=== PATIENT | male | born 1940 | race Caucasian/White ===

== ENCOUNTER 2016-07-29 20:50 | Emergency (ER) | payer MEDICARE ==
[2016-07-29 21:15] VITALS: BP 114/68
[2016-07-29] MEDS ORDERED: Prochlorperazine TAB* 10 MG PO ONE ×2 (21:38)
[2016-07-29] MEDS ORDERED: Prochlorperazine TAB* 5 MG PO ONE ×2 (21:45→21:46)
--- NOTE | 2016-07-29 21:45 | UC ---
Abdominal Pain Male HPI - HPI Summary HPI Summary: VOMITING X 4 HRS + FATIGUE, NO ABDOMINAL PAIN , NO DIARRHEA HAD SIMILAR SX ABOUT A WEEK AGO NO FEVER, NO DYSURIA - History of Current Complaint Chief Complaint: UCGeneralIllness Stated Complaint: VOMITING Time Seen by Provider: 07/29/16 21:27 Hx Obtained From: Patient, Family/Art Specialist Onset/Duration: Sudden Onset, Lasting Hours - 4, Still Present Timing: Constant Severity Initially: Moderate Severity Currently: Moderate Location: Diffuse Radiates: No Character: Not Applicable Aggravating Factor(s):: Food Alleviating Factor(s): Nothing Associated Signs And Symptoms: Negative: Diaphoresis, Fever, Cough, Chest Pain, Dizzy, Back Pain, Constipation, Blood in Stool, Urinary Symptoms, Decreased Appetite, Vomiting, Diarrhea - Allergies/Home Medications Allergies/Adverse Reactions: Allergies Allergy/AdvReac Type Severity Reaction Status Date / Time Atorvastatin [From Lipitor] Allergy Severe Hives Verified 07/29/16 21:14 Ondansetron [From Zofran] Allergy Severe RASH, Verified 07/29/16 21:14 SWELLING Sulfa Drugs Allergy Intermediate Rash Verified 07/29/16 21:14 Cetirizine [From Zyrtec] Allergy Hives Verified 07/29/16 21:14 Ciprofloxacin [From Cipro] Allergy Rash Verified 07/29/16 21:14 Clavulanic Acid Allergy See Comment Verified 07/29/16 21:14 [From Augmentin] Doxycycline Allergy See Comment Verified 07/29/16 21:14 Erythromycin Allergy Unknown Verified 07/29/16 21:14 Reaction Details PMH/Surg Hx/FS Hx/Imm Hx Endocrine History Of: Reports: Dyslipidemia Denies: Diabetes, Thyroid Disease Cardiovascular History Of: Reports: Cardiac Disorders - Dyslipidemia, Hypertension Denies: Pacemaker/ICD Respiratory History Of: Denies: COPD, Asthma GI/ History Of: Reports: Gastroesophageal Reflux Denies: Renal Disease Neurological History Of: Denies: CVA, Dementia, Seizures Psychological History Of: Reports: Anxiety - mild, takes xanax Other History Of: Negative For: Anticoagulant Therapy - Surgical History Surgical History: Yes Surgery Procedure, Year, and Place: gangleon cyst - Family History Known Family History: Positive: Other - allergies Negative: Diabetes - Social History Alcohol Use: None Substance Use Type: None Smoking Status (MU): Never Smoked Tobacco - Immunization History Most Recent Influenza Vaccination: March 2016 Review of Systems Constitutional: Negative Skin: Negative Eyes: Negative ENT: Negative Respiratory: Negative Cardiovascular: Negative Gastrointestinal: Vomiting Genitourinary: Negative All Other Systems Reviewed And Are Negative: Yes Physical Exam Triage Information Reviewed: Yes Appearance: Well-Appearing, No Pain Distress, Well-Nourished Vital Signs: Initial Vital Signs Temp 96.4 F 07/29/16 21:00 Pulse 90 07/29/16 21:00 Resp 18 07/29/16 21:00 BP 114/68 07/29/16 21:00 Pulse Ox 97 07/29/16 21:00 Vital Signs Reviewed: Yes ENT Exam: Normal ENT: Positive: Normal ENT inspection, Hearing grossly normal, Pharynx normal Neck exam: Normal Neck: Positive: Supple Respiratory Exam: Normal Respiratory: Positive: Chest non-tender, Lungs clear Cardiovascular: Positive: RRR, No Murmur, Pulses Normal Abdominal Exam: Normal Abdomen Description: Positive: Nontender. Negative: CVA Tenderness (R), CVA Tenderness (L), Distended, Guarding Bowel Sounds: Positive: Present Skin Exam: Normal Abd Pain Male Course/Dx - Differential Dx/Clinical Impression Provider Diagnoses: GASTRITIS Discharge - Discharge Plan Condition: Stable Disposition: HOME Patient Education Materials: Gastritis (ED) Referrals: Jsoiah Macias MD [Primary Care Provider] - 1 Day Additional Instructions: GO TO ED IF HAVING ABDOMINAL PAIN , FEVER, OR CONT. HAVING VOMITING BY TOMORROW
[2016-07-29] MEDS ORDERED: Prochlorperazine TAB* 5 MG ONE (21:49)
== END 2016-07-29 22:06 | disposition home or self-care (01) ==
LOC: UCCORT 20:50
DX: K29.70 Gastritis, unspecified, without bleeding (principal); F41.9 Anxiety disorder, unspecified; Z88.1 Allergy status to other antibiotic agents; Z88.2 Allergy status to sulfonamides; Z88.8 Allergy status to other drugs, medicaments and biological substances
CPT/HCPCS: 99212; A9270-GY; G0463; Q0164

== ENCOUNTER 2016-11-28 10:53 | Emergency (ER) | payer MEDICARE ==
--- NOTE | 2016-11-28 12:56 | UC ---
Lower Extremity/Ankle HPI - HPI Summary HPI Summary: hit right lower led on car door about 10 days ago now has 5 days of worsening calf pain and swelling in foot/ankle - History of Current Complaint Chief Complaint: UCLowerExtremity Stated Complaint: RIGHT LOWER LEG/ANKLE PAIN Time Seen by Provider: 11/28/16 12:32 Hx Obtained From: Patient Onset/Duration: Gradual Onset, Lasting Days, Still Present, Worse Since - past few days Severity Initially: Mild Severity Currently: Moderate Pain Intensity: 6 Pain Scale Used: 0-10 Numeric Aggravating Factor(s): Standing, Ambulation Alleviating Factor(s): Rest, Elevation Able to Bear Weight: Yes - Allergies/Home Medications Allergies/Adverse Reactions: Allergies Allergy/AdvReac Type Severity Reaction Status Date / Time Atorvastatin [From Lipitor] Allergy Severe Hives Verified 11/28/16 12:38 Ondansetron [From Zofran] Allergy Severe RASH, Verified 11/28/16 12:38 SWELLING Sulfa Drugs Allergy Intermediate Rash Verified 11/28/16 12:38 Cetirizine [From Zyrtec] Allergy Hives Verified 11/28/16 12:38 Ciprofloxacin [From Cipro] Allergy Rash Verified 11/28/16 12:38 Clavulanic Acid Allergy See Comment Verified 11/28/16 12:38 [From Augmentin] Doxycycline Allergy See Comment Verified 11/28/16 12:38 Erythromycin Allergy Unknown Verified 11/28/16 12:38 Reaction Details PMH/Surg Hx/FS Hx/Imm Hx Previously Healthy: No Endocrine History Of: Reports: Dyslipidemia Denies: Diabetes, Thyroid Disease Cardiovascular History Of: Reports: Cardiac Disorders - Dyslipidemia, Hypertension Denies: Pacemaker/ICD Respiratory History Of: Denies: COPD, Asthma GI/ History Of: Reports: Gastroesophageal Reflux Denies: Renal Disease Neurological History Of: Denies: CVA, Dementia, Seizures Psychological History Of: Reports: Anxiety - mild, takes xanax Other History Of: Negative For: Anticoagulant Therapy - Surgical History Surgical History: Yes Surgery Procedure, Year, and Place: gangleon cyst - Family History Known Family History: Positive: Other - allergies Negative: Diabetes - Social History Occupation: Retired Lives: With Family Alcohol Use: None Substance Use Type: None Smoking Status (MU): Never Smoked Tobacco - Immunization History Most Recent Influenza Vaccination: March 2016 Review of Systems Constitutional: Negative Skin: Negative Eyes: Negative ENT: Negative Respiratory: Negative Cardiovascular: Negative Gastrointestinal: Negative Genitourinary: Negative Motor: Negative Neurovascular: Negative Musculoskeletal: Negative, Edema - right lower leg/ankle, Myalgia - right calf Neurological: Negative Psychological: Negative All Other Systems Reviewed And Are Negative: Yes Physical Exam Triage Information Reviewed: Yes Appearance: Well-Appearing, No Pain Distress, Well-Nourished Vital Signs: Initial Vital Signs Temp 97.9 F 11/28/16 12:32 Pulse 80 11/28/16 12:32 Resp 16 11/28/16 12:32 Pulse Ox 98 11/28/16 12:32 Vital Signs Reviewed: Yes Eye Exam: Normal Eyes: Positive: Conjunctiva Clear ENT Exam: Normal ENT: Positive: Normal ENT inspection, Hearing grossly normal. Negative: Nasal congestion, Nasal drainage, Trismus, Muffled/hoarse voice Dental Exam: Normal Neck exam: Normal Neck: Positive: Supple, Nontender Respiratory Exam: Normal Respiratory: Positive: Chest non-tender, No respiratory distress, No accessory muscle use Cardiovascular Exam: Normal Cardiovascular: Positive: RRR, Pulses Normal, Brisk Capillary Refill Musculoskeletal Exam: Normal Musculoskeletal: Positive: Strength Intact, ROM Intact, Edema @ - right LE Neurological Exam: Normal Neurological: Positive: Alert, Muscle Tone Normal Psychological Exam: Normal Skin Exam: Normal Lower Extremity Course/Dx - Course Course Of Treatment[place] [facility] [place] - Differential Dx/Diagnosis Differential Diagnosis/HQI/PQRI: Cellulitis, Contusion, DVT, Fracture (Closed), Sprain, Strain Provider Diagnoses: RLE Swelling - Physician Notifications Discussed Patient Care With: Dr. Lopez Time Discussed With Above Provider: 12:55 Instructed by Provider To: Transfer Discharge - Discharge Plan Condition: Fair Disposition: AGAINST MEDICAL ADVICE
[2016-11-28 12:59] VITALS: BP 136/86
== END 2016-11-28 13:01 | disposition left against medical advice (07) ==
LOC: UCCORT 10:53
DX: M79.89 Other specified soft tissue disorders (principal); W22.8XXA Striking against or struck by other objects, initial encounter; Y92.9 Unspecified place or not applicable; Z53.21 Procedure and treatment not carried out due to patient leaving prior to being seen by health care provider
CPT/HCPCS: 99212; G0463

== ENCOUNTER 2016-11-28 14:13 | Emergency (ER) | payer MEDICARE ==
[2016-11-28 14:18] VITALS: BP 144/93
--- NOTE | 2016-11-28 15:49 | RAD ---
HISTORY: Pain and swelling of right lower extremity COMPARISONS: None relevant TECHNIQUE: Multiple transverse and longitudinal ultrasound images were obtained of the right lower extremity from the level of the common femoral vein inferiorly through to the infrapopliteal veins using grayscale, color Doppler, and spectral Doppler imaging with and without compression and with augmentation. Comparison images were obtained of the contralateral common femoral vein. FINDINGS: VEINS: The venous system of the right lower extremity is compressible throughout its course, with normal flow on color Doppler imaging and normal response to augmentation on spectral Doppler imaging. SOFT TISSUES: Unremarkable. OTHER FINDINGS: None. IMPRESSION: NO RIGHT LOWER EXTREMITY DEEP VEIN THROMBOSIS
--- NOTE | 2016-11-28 16:48 | ED ---
I, Oh,Nereida, scribed for Keli Dawson MD on 11/28/16 at 1525 . Lower Extremity - HPI Summary HPI Summary: This 76 y/o male presents to ED for RLE leg pain after he "banged" RLE leg to car door a week ago. Pt reports pulling muscle at calf of same legs while working throughout last week. Pt decided to visit ED when pain returned after he re-injured his RLE leg after slipping from standing position and pulled calf muscle again. PMHx includes HTN. Negative DM. Nonsmoker. Nondrinker. Primary care involves Dr. Macias. Plan of care involving Doppler imaging studies was discussed with pt and present at bedside, and they are agreeable at this moment. - History of Current Complaint Chief Complaint: EDExtremityLower Stated Complaint: RIGHT LEG PAIN, R/O DVT COMMING FROM [facility] Time Seen by Provider: 11/28/16 15:12 Hx Obtained From: Patient Mechanism Of Injury: Blunt Trauma Pain Intensity: 5 Pain Scale Used: 0-10 Numeric Timing: Constant Location: Is Discrete @ - RLE calf pain Character Of Pain: Dull Associated Signs And Symptoms: Positive: Negative Aggravating Factor(s): Nothing Alleviating Factor(s): Nothing Able to Bear Weight: Yes - Allergies/Home Medications Allergies/Adverse Reactions: Allergies Allergy/AdvReac Type Severity Reaction Status Date / Time Atorvastatin [From Lipitor] Allergy Severe Hives Verified 11/28/16 14:16 Ondansetron [From Zofran] Allergy Severe RASH, Verified 11/28/16 14:16 SWELLING Sulfa Drugs Allergy Intermediate Rash Verified 11/28/16 14:16 Cetirizine [From Zyrtec] Allergy Hives Verified 11/28/16 14:16 Ciprofloxacin [From Cipro] Allergy Rash Verified 11/28/16 14:16 Clavulanic Acid Allergy See Comment Verified 11/28/16 14:16 [From Augmentin] Doxycycline Allergy See Comment Verified 11/28/16 14:16 Erythromycin Allergy Unknown Verified 11/28/16 14:16 Reaction Details PMH/Surg Hx/FS Hx/Imm Hx Endocrine/Hematology History: Denies: Hx Anticoagulant Therapy, Hx Diabetes, Hx Thyroid Disease Cardiovascular History: Reports: Hx Angina, Hx Hypercholesterolemia, Hx Hypertension, Other Cardiovascular Problems/Disorders - cardiac cath 2006 r/o mitral valve prolapse Denies: Hx Pacemaker/ICD Respiratory History: Denies: Hx Asthma, Hx Chronic Obstructive Pulmonary Disease (COPD), Other Respiratory Problems/Disorders - DENIES GI History: Reports: Hx Diverticulosis, Hx Gastroesophageal Reflux Disease, Other GI Disorders - hospitalized for diverticulitis 2002 History: Denies: Hx Renal Disease Sensory History: Reports: Hx Contacts or Glasses, Hx Vision Problem Opthamlomology History: Reports: Hx Contacts or Glasses, Hx Vision Problem Neurological History: Denies: Hx Dementia, Hx Seizures Psychiatric History: Reports: Hx Anxiety - mild, takes xanax Denies: Hx Substance Abuse - Cancer History Cancer Type, Location and Year: skin lesions biopsied 2011 - Surgical History Surgery Procedure, Year, and Place: gangleon cyst Infectious Disease History: No Infectious Disease History: Reports: Hx Shingles Denies: Hx Clostridium Difficile, Hx Hepatitis, Hx Human Immunodeficiency Virus (HIV), Hx of Known/Suspected MRSA, Hx Tuberculosis, Hx Known/Suspected VRE , Hx Known/Suspected VRSA, History Other Infectious Disease, Traveled Outside the [place] in Last 30 Days - Family History Known Family History: Positive: Other - allergies Negative: Diabetes - Social History Alcohol Use: None Substance Use Type: Reports: None Smoking Status (MU): Never Smoked Tobacco Review of Systems Negative: Fever, Chills Positive: Other - RLE calf pain. Negative: Edema All Other Systems Reviewed And Are Negative: Yes Physical Exam Triage Information Reviewed: Yes Vital Signs On Initial Exam: Initial Vitals Temp Pulse Resp BP Pulse Ox 97.9 F 84 18 144/93 99 11/28/16 14:16 11/28/16 14:16 11/28/16 14:16 11/28/16 14:16 11/28/16 14:16 Vital Signs Reviewed: Yes Appearance: Positive: Well-Appearing, No Pain Distress Skin: Positive: Other - Small petechia on medial posterior side of RLE calf Head/Face: Positive: Normal Head/Face Inspection Eyes: Positive: EOMI, GALEN Neck: Positive: Supple, Nontender Respiratory/Lung Sounds: Positive: Clear to Auscultation, Breath Sounds Present Cardiovascular: Positive: RRR, Pulses are Symmetrical in both Upper and Lower Extremities Musculoskeletal: Positive: Strength/ROM Intact, Other - Mild, diffuse tenderness over RLE calf Neurological: Positive: Sensory/Motor Intact, Alert, Oriented to Person Place, Time Psychiatric: Positive: Affect/Mood Appropriate AVPU Assessment: Alert Diagnostics - Vital Signs Vital Signs Temp Pulse Resp BP Pulse Ox 11/28/16 14:16 97.9 F 84 18 144/93 99 - Laboratory Lab Statement: Any lab studies that have been ordered have been reviewed, and results considered in the medical decision making process. - Additional Comments Diagnostic Additional Comments: US RLE doppler -- NO RIGHT LOWER EXTREMITY DEEP VEIN THROMBOSIS Re-Evaluation - Re-Evaluation First Eval Re-Evaluation Time: 16:18 Comment: MD in room to update pt on imaging results. Lower Extremity Course/Dx - Course Course Of Treatment: pt with multiple small injuries to calf with pain dvt study neg no signs of cellulitis - Diagnoses Provider Diagnoses: Muscle strain Discharge - Discharge Plan Condition: Stable Disposition: HOME Patient Education Materials: Muscle Strain (ED) Referrals: Josiah Macias MD [Primary Care Provider] - 2 Days The documentation as recorded by the Serafin billingsley Soohyun accurately reflects the service I personally performed and the decisions made by me, Keli Dawson MD.
== END 2016-11-28 16:51 | disposition home or self-care (01) ==
LOC: ED 14:13
DX: S86.911A Strain of unspecified muscle(s) and tendon(s) at lower leg level, right leg, initial encounter (principal); E78.00 Pure hypercholesterolemia, unspecified; I10 Essential (primary) hypertension; F41.9 Anxiety disorder, unspecified
CPT/HCPCS: 99281

== ENCOUNTER 2017-02-25 09:17 | Inpatient (IN) | payer MEDICARE ==
[2017-02-25 10:12] LABS: Hematocrit 44 % (42-52); Hemoglobin 15.3 g/dl (14.0-18.0); Mean Corpuscular HGB Conc 35 g/dl (31-36); Mean Corpuscular Hemoglobin 33 pg (27-31); Mean Corpuscular Volume 93 fL (80-94); Mean Platelet Volume 8 um3 (7.4-10.4); Red Cell Distribution Width 13 % (10.5-15); White Blood Count 16.3 10^3/ul (3.5-10.8)
[2017-02-25 10:29] LABS: Albumin 4.7 g/dL (3.2-5.2); BUN/Creatinine Ratio 20.7 (8-20); C Reactive Protein 55.31 mg/L (< 5.00); Calcium 9.5 mg/dL (8.6-10.3); EGFR African American 103.4 (>60); EGFR Non-African American 80.4 (>60); Potassium 3.8 mmol/L (3.5-5.0); Total Bilirubin 1.2 mg/dL (0.2-1.0); Total Protein 7.7 g/dL (6.4-8.9)
--- NOTE | 2017-02-25 10:30 | RAD ---
INDICATION: Right flank pain COMPARISON: CT abdomen pelvis July 06, 2008 TECHNIQUE: Noncontrast axial source images were acquired from the level hemidiaphragms to the symphysis pubis as part of CT imaging for renal stone. Lung bases: The lung bases are clear. Liver: The liver is mildly enlarged with findings of hepatic steatosis. Noncontrast imaging shows no evidence of a hepatic mass or ductal dilatation. Gallbladder: There is cholelithiasis. There is no thickening gallbladder wall or pericholecystic fluid. Spleen: The spleen is normal in size. The noncontrast CT appearance is normal. Pancreas: Noncontrast imaging shows no pancreatic mass or ductal dilitation. There are several small pancreatic calcifications, unchanged Adrenal glands: No masses are identified. Kidneys/Bladder: There is no evidence of nephrolithiasis or CT evidence of hydronephrosis. Noncontrast imaging shows a 3.6 cm midpole left renal cyst. This has increased in size. The bladder is unremarkable.. Adenopathy: There is no evidence of intraperitoneal or retroperitoneal adenopathy. Evaluation is limited without oral contrast. Fluid collections: There are no free or localized fluid collections. Vessels: The aorta and iliac vessels are normal in caliber. There are no significant atherosclerotic changes. The IVC appears normal Pelvic organs: The prostate and seminal vesicles appear normal GI tract: Evaluation is limited given lack of oral contrast. The upper GI tract is unremarkable. There are extensive diverticula of the sigmoid and descending colon but no CT findings specific for acute diverticulitis. Soft tissues: Tiny fat-containing periumbilical hernia.. Osseous structures: There are no acute osseous findings. IMPRESSION: 1. Cholelithiasis. 2. Scant pancreatic calcifications, unchanged. 3. No CT evidence of urolithiasis. 4. Extensive diverticula of the sigmoid and descending colon. No CT findings specific for acute diverticulitis. 5. Tiny periumbilical hernia.
[2017-02-25 10:44] LABS: Urine Bacteria 1+ (Absent); Urine Bilirubin Negative (Negative); Urine Glucose Negative (Negative); Urine Nitrite Positive (Negative)
[2017-02-25] MEDS ORDERED: NS 0.9% 1000 ML*IV.FLUID IV ONE (11:55)
[2017-02-25] MEDS ORDERED: NS 0.9% 1000 ML* 1,000 ML IV ONE (12:20)
[2017-02-25] MEDS ORDERED: cefTRIAXone VIAL(*) 2,000 MG in NS 0.9% 50 ML* 50 ML IVPB SCH (12:21)
[2017-02-25] MEDS: HYDROcodone/ACETAMIN 5-325 MG* 1 TAB PO PRN ×2 (14:12→19:51)
[2017-02-25] MEDS: NS 0.9% 1000 ML* 1,000 ML IV SCH (14:12)
[2017-02-25] MEDS: ALPRAZolam TAB* 0.5 MG PO PRN ×2 (14:12→22:36)
[2017-02-25] MEDS: Phenazopyridine TAB* 100 MG PO SCH ×2 (14:12→22:44)
[2017-02-25] MEDS: Heparin VIAL(*) 5000 UNITS/ML VIAL (FIVE THOUSAND) SUBCUT SCH ×2 (14:13→22:37)
--- NOTE | 2017-02-25 15:49 | HP ---
ATTENDING PHYSICIAN ADDENDUM NOW INCLUDED ON THIS REPORT CC: Dr. Josiah Macias; Dr. Ramos * HISTORY AND PHYSICAL: DATE OF ADMISSION: 02/25/17 PRIMARY CARE PROVIDER: Dr. Josiah Macias CONSULTING UROLOGIST: Dr. Ramos. ATTENDING PHYSICIAN WHILE IN THE HOSPITAL: Margarita Peter MD * (report dictated by Chris Castro NP) CHIEF COMPLAINT: 1. Chills. 2. Not feeling well. HISTORY OF PRESENTING ILLNESS: Mr. Allison is a 76-year-old male patient who has a history of GERD, hypertension, diverticulitis, overactive bladder, BPH, shingles, hypertension, pancreatitis in the past. He comes in today, he says that for the last 2 to 3 weeks now, he has been suffering from prostatitis. He has been following with Dr. Ramos in Dr. Gordon's office. The patient has had 2 rounds of Keflex and despite this, he finished the dose, the last second course on Tuesday. He was feeling well in the beginning of the week and then yesterday, throughout the day, just not feeling good, feeling weak, tired, more dizziness. He noticed last night that he was having difficulty with urination. He was having frequency and dysuria. He was having chills and shakes. He could not get warm. He was concerned and he came into the ER today. He denied having any flank pain. He denied having any abdominal pain. There has been no nausea or vomiting. He denied any shortness of breath or chest pain. He says his appetite has been down the last couple of days. He did state that he was seen at his urologist's office yesterday. His urine was clean, but because of the chills and the dysuria and the problems he was having last night, he came into the ER, he was evaluated here and it was felt that he had recurrent prostatitis. It was noted he had a white count of 16,000 and because of this it was felt that he would require IV antibiotics and hospitalist service was asked to evaluate for admission. PAST MEDICAL HISTORY: Significant for: 1. GERD. 2. Hyperlipidemia. 3. Diverticulitis. 4. Overactive bladder. 5. BPH. 6. Shingles. 7. Hypertension. 8. Pancreatitis. PAST SURGICAL HISTORY: The patient has had a ganglion cyst removal. HOME MEDICATIONS: Include: 1. Clarinex 5 mg p.o. at bedtime. 2. Pine-3 fatty acids 1000 mg p.o. daily. 3. Multivitamins 1 tablet daily. 4. Flomax 0.4 mg p.o. daily. 5. Aspirin 81 mg daily. 6. Xanax 0.5 mg p.o. t.i.d. as needed. 7. Lopid 600 mg p.o. t.i.d. as needed. 8. Pravachol 5 mg p.o. daily. 9. Norvasc 2.5 mg daily. 10. Docusate 20 mg p.o. at bedtime. 11. MiraLAX 17 g at bedtime as needed. 12. Omeprazole 20 mg p.o. daily. ALLERGIES TO MEDICATIONS: Include LIPITOR, ZOFRAN, SULFA, CETIRIZINE, CIPRO, AUGMENTIN, DOXYCYCLINE, and ERYTHROMYCIN. FAMILY HISTORY: Mother had a history of breast cancer. Father had a history of [place]. SOCIAL HISTORY: The patient does not smoke, rarely drinks alcohol. His surrogate decision maker is his . REVIEW OF SYSTEMS: There was no documented fevers here. He does admit to having some chills at home. He denied having any significant weight change. There was no double vision. He denies having any ear discharge. There was no rhinorrhea. No sore throat. No thyroid enlargement. He denies having any chest pain. There is no orthopnea. There is no nocturnal dyspnea. He denies having any abdominal pain. He does admit to having dysuria and frequency. There is no seizure. No loss of consciousness. No pruritus and no skin ulceration. Review of 14 systems completed, all others negative. PHYSICAL EXAMINATION GENERAL: At this time, Mr. Allison is a 76-year-old male patient. He appears to be well nourished, well developed. He does not appear to be in any acute distress. VITAL SIGNS: Reveal blood pressure 142/70, pulse of 86, respirations 18, O2 sat 94%, temperature 99.1. HEENT: Head is atraumatic. Eyes: EOMs are intact. Sclerae anicteric. Throat : Oral mucosa appears to be dry. No oropharyngeal erythema. NECK: Supple. LUNGS: Clear to auscultation bilaterally. No wheezes, rales, or rhonchi. HEART: Sounds S1 and S2. Regular rate and rhythm. No murmurs, rubs, or gallops. ABDOMEN: Soft, flat, nontender. Bowel sounds present. EXTREMITIES: Pulses 2+ throughout. He is able to move all 4 extremities with 5 /5 strength. NEUROLOGIC: He is awake, alert, and oriented x3. Tongue is midline. Research Pharmacist were equal. No gross focal deficits. SKIN: Intact. DIAGNOSTIC STUDIES/LAB DATA: His labs revealed WBC of 16.3, RBC of 4.70, hemoglobin of 15.3, hematocrit of 44, platelet count of 205. INR was 1.02. Sodium was 135, potassium was 3.8, chloride of 98, bicarb 26, BUN 19, creatinine 0.92, glucose 126, lactate 1.1, calcium 9.5. Total bili 1.2, AST 23 , ALT 22, alk phos 59. Troponin 0.0. CRP of 55. Albumin of 4.7. Urine showed 2+ protein, 2+ ketones, 1+ blood, positive nitrites, 1+ bacteria, 3+ leukocyte esterase, 2+ wbc, 3+ rbc. He had an abdominal and pelvis CT scan obtained today, which revealed cholelithiasis, pancreatic calcifications unchanged. No CT evidence of urolithiasis, extensive diverticulosis of the sigmoid colon and descending colon. No CT findings were suggestive for acute diverticulitis. Tiny paraumbilical hernia. Old medical records were reviewed. ASSESSMENT AND PLAN: Mr. Allison is a 76-year-old male patient, coming into the ER today with complaints of dysuria and frequency, has known prostatitis. He has received 2 rounds of antibiotics, but despite this, he was not improving. We were asked to evaluate for admission. He will be admitted under inpatient status for: 1. Prostatitis: He is showing early signs of this with white count of 16,000. When he changes position, his heart rate goes up to 100, so he does appear to be dry. Plan is to give him a liter of fluids wide open. He has been pancultured here in the ED. His urine is being sent off for culture. I do not have previous micro reports. The plan will be to give him Rocephin 2 g daily. We will get in Dr. Ramos to see the patient in the ED. The plan will be to hydrate him and give him IV antibiotics and monitor him for the next 48 to 72 hours and see if he improves. 2. Gastroesophageal reflux disease: Continue meds as prescribed. 3. Hyperlipidemia: Continue his meds as prescribed. 4. History of diverticulitis and pancreatitis: Not active issues currently. 5. History of overactive bladder: Continue meds as prescribed. 6. Benign prostatic hyperplasia: Continue Flomax, stable. 7. Hypertension: We will continue his Norvasc. 8. DVT prophylaxis. We will place him on heparin subcu. 9. Code status: Full code. 10. Fluids, electrolytes, and nutrition: He can have a regular diet. TIME SPENT: On the admission was 60 minutes, greater than half the time was spent [id number] with the patient obtaining my history and physical; the other half the time was spent going over the plan of care with the patient and implementing the plan of care. I did discuss the plan of care with my attending, Dr. Peter; she is in agreement. CHRIS CASTRO, HARSHAD ADDENDUM: Mr. Allison is a 76-year-old male who has had problems with urinary tract infection for the past couple of weeks treated with Keflex repeatedly. Today, he presents with fever, leukocytosis and once again abnormal urinalysis. The patient was seen by Dr. Ramos from Urology who recommended treatment with ceftriaxone. At this time, the working diagnosis is acute cystitis and possible prostatitis. For further details of the patient's presentation and plan, please see history and physical dictated by Chris Castro on 02/25/17 with which I agree. MARGARITA PETER MD [id number] #: [id number]/[id number] #: [id number] KURT
--- NOTE | 2017-02-25 17:56 | ED ---
Tye Joe Angela, scribed for Yovani Jackson MD on 02/25/17 at 0949 . GI/ HPI - HPI Summary HPI Summary: This pt is a 76 y/o male presenting to [facility] c/o dysuria and overall weakness. He notes he has a PMHx of prostatitis (since 01/25/17) but last night his pain was worse. Pt reports dizziness and lightheadedness since he started taking Flomax on February 09. He endorses urinary frequency, abd bloating when bladder gets full, penile burn, and decreased appetite. Pt also states that over the last couple of days he has been leaking. Pt called Dr. Ramos's office last night and was told to come to the ED. He has an upcoming appointment on 03/01/17 but couldn't wait any longer. Pt denies back pain, SOB, chest pain. 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 - Onset/Duration: Started Days Ago Timing: Constant Pain Intensity: 9 Associated Signs and Symptoms: Positive: Dizziness, Weakness, Change in Appetite - decreased appetite, Abdominal Pain, Other: - dysuria, penile burning Aggravating Factor(s): Urination Alleviating Factor(s): Nothing - Allergy/Home Medications Allergies/Adverse Reactions: Allergies Allergy/AdvReac Type Severity Reaction Status Date / Time Atorvastatin [From Lipitor] Allergy Severe Hives Verified 02/25/17 09:43 Ondansetron [From Zofran] Allergy Severe RASH, Verified 02/25/17 09:43 SWELLING Sulfa Drugs Allergy Intermediate Rash Verified 02/25/17 09:43 Cetirizine [From Zyrtec] Allergy Hives Verified 02/25/17 09:43 Ciprofloxacin [From Cipro] Allergy Rash Verified 02/25/17 09:43 Clavulanic Acid Allergy See Comment Verified 02/25/17 09:43 [From Augmentin] Doxycycline Allergy See Comment Verified 02/25/17 09:43 Erythromycin Allergy Unknown Verified 02/25/17 09:43 Reaction Details Home Medications: Home Medications Desloratidine (NF) [Clarinex (NF)] 5 mg PO BEDTIME 02/25/17 [History Confirmed 02/25/17] Doxepin (NF) 20 mg PO BEDTIME 02/25/17 [History Confirmed 02/25/17] Multivitamins/Minerals TAB* [Theragran/minerals TAB*] 1 tab PO DAILY 02/25/17 [ History Confirmed 02/25/17] [place]-3 Fatty Acids (Nf) [Fish Oil (NF)] 1,000 mg PO DAILY 02/25/17 [History Confirmed 02/25/17] Tamsulosin CAP* [Flomax CAP*] 0.4 mg PO DAILY 02/25/17 [History Confirmed ] PMH/Surg Hx/FS Hx/Imm Hx Endocrine/Hematology History: Denies: Hx Anticoagulant Therapy, Hx Diabetes, Hx Thyroid Disease Cardiovascular History: Reports: Hx Angina, Hx Hypercholesterolemia, Hx Hypertension, Other Cardiovascular Problems/Disorders - cardiac cath 2006 r/o mitral valve prolapse Denies: Hx Pacemaker/ICD Respiratory History: Denies: Hx Asthma, Hx Chronic Obstructive Pulmonary Disease (COPD), Other Respiratory Problems/Disorders - DENIES GI History: Reports: Hx Diverticulosis, Hx Gastroesophageal Reflux Disease, Other GI Disorders - hospitalized for diverticulitis 2002 History: Denies: Hx Renal Disease Sensory History: Reports: Hx Contacts or Glasses, Hx Vision Problem Denies: Hx Hearing Aid Opthamlomology History: Reports: Hx Contacts or Glasses, Hx Vision Problem Neurological History: Denies: Hx Dementia, Hx Seizures Psychiatric History: Reports: Hx Anxiety - mild, takes xanax Denies: Hx Panic Disorder, Hx Substance Abuse - Cancer History Cancer Type, Location and Year: skin lesions biopsied 2011 - Surgical History Surgery Procedure, Year, and Place: gangleon cyst Infectious Disease History: Reports: Hx Shingles Denies: Hx Clostridium Difficile, Hx Hepatitis, Hx Human Immunodeficiency Virus (HIV), Hx of Known/Suspected MRSA, Hx Tuberculosis, Hx Known/Suspected VRE , Hx Known/Suspected VRSA, History Other Infectious Disease, Traveled Outside the [place] in Last 30 Days - Family History Known Family History: Positive: Other - allergies Negative: Diabetes - Social History Alcohol Use: None Substance Use Type: Reports: None Smoking Status (MU): Never Smoked Tobacco Review of Systems Positive: Fatigue - weakness. Negative: Fever, Chills Negative: Chest Pain Negative: Shortness Of Breath Positive: Abdominal Pain - when bladder gets full Positive: burning, dysuria, frequency, other - penile burning Positive: Other - NEGATIVE: back pain All Other Systems Reviewed And Are Negative: Yes Physical Exam Triage Information Reviewed: Yes Vital Signs On Initial Exam: Initial Vitals Temp Pulse Resp BP Pulse Ox 99.1 F 89 15 159/74 94 02/25/17 09:20 02/25/17 09:20 02/25/17 09:20 02/25/17 09:20 02/25/17 09:20 Vital Signs Reviewed: Yes Appearance: Positive: Well-Appearing Skin: Positive: Warm, Skin Color Reflects Adequate Perfusion, Dry Head/Face: Positive: Normal Head/Face Inspection Eyes: Positive: Normal ENT: Positive: Normal ENT inspection Respiratory/Lung Sounds: Positive: Clear to Auscultation, Breath Sounds Present Cardiovascular: Positive: RRR Abdomen Description: Positive: Nontender, Soft Bowel Sounds: Positive: Present Musculoskeletal: Positive: Normal Neurological: Positive: Normal Psychiatric: Positive: Normal, Affect/Mood Appropriate Diagnostics - Vital Signs Vital Signs Temp Pulse Resp BP Pulse Ox 02/25/17 09:20 99.1 F 89 15 159/74 94 - Laboratory Lab Results: Lab Results 02/25/17 02/25/17 02/25/17 Range/Units 08:55 08:55 08:55 WBC 16.3 H (3.5-10.8) 10^3/ul RBC 4.70 (4.0-5.4) 10^6/ul Hgb 15.3 (14.0-18.0) g/dl Hct 44 (42-52) % MCV 93 (80-94) fL MCH 33 H (27-31) pg MCHC 35 (31-36) g/dl RDW 13 (10.5-15) % Plt Count 205 (150-450) 10^3/ul MPV 8 (7.4-10.4) um3 Neut % (Auto) 91.2 H (38-83) % Lymph % (Auto) 4.1 L (25-47) % [place] % (Auto) 4.4 (1-9) % Eos % (Auto) 0.1 (0-6) % Baso % (Auto) 0.2 (0-2) % Absolute Neuts (auto) 14.9 H (1.5-7.7) 10^3/ul Absolute Lymphs (auto) 0.7 L (1.0-4.8) 10^3/ul Absolute Monos (auto) 0.7 (0-0.8) 10^3/ul Absolute Eos (auto) 0 (0-0.6) 10^3/ul Absolute Basos (auto) 0 (0-0.2) 10^3/ul Absolute Nucleated RBC 0 10^3/ul Nucleated RBC % 0 INR (Anticoag Therapy) 1.02 (0.89-1.11) Sodium (133-145) mmol/L Potassium (3.5-5.0) mmol/L Chloride (101-111) mmol/L Carbon Dioxide (22-32) mmol/L Anion Gap (2-11) mmol/L BUN (6-24) mg/dL Creatinine (0.67-1.17) mg/dL Est GFR ( Amer) (>60) Est GFR (Non-Af Amer) (>60) BUN/Creatinine Ratio (8-20) Glucose (70-100) mg/dL Lactic Acid (0.5-2.0) mmol/L Calcium (8.6-10.3) mg/dL Total Bilirubin (0.2-1.0) mg/dL AST (13-39) U/L ALT (7-52) U/L Alkaline Phosphatase (34-104) U/L Troponin I (<0.04) ng/mL C-Reactive Protein (< 5.00) mg/L Total Protein (6.4-8.9) g/dL Albumin (3.2-5.2) g/dL Globulin (2-4) g/dL Albumin/Globulin Ratio (1-3) Urine Color Marti Urine Appearance Cloudy Urine pH 5.0 (5-9) Ur Specific [place] 1.026 (1.010-1.030) Urine Protein 2+(100 mg/dl) H (Negative) Urine Ketones 2+ H (Negative) Urine Blood 1+ H (Negative) Urine Nitrate Positive H (Negative) Urine Bilirubin Negative (Negative) Urine Urobilinogen Negative (Negative) Ur Leukocyte Esterase 3+ H (Negative) Urine WBC (Auto) 3+(>20/hpf) H (Absent) Urine RBC (Auto) 3+(>10/hpf) H (Absent) Urine Bacteria 1+ H (Absent) Hyaline Casts Present H (Absent) Urine Glucose Negative (Negative) 08/25/17 08/25/17 Range/Units 08:55 08:55 WBC (3.5-10.8) 10^3/ul RBC (4.0-5.4) 10^6/ul Hgb (14.0-18.0) g/dl Hct (42-52) % MCV (80-94) fL MCH (27-31) pg MCHC (31-36) g/dl RDW (10.5-15) % Plt Count (150-450) 10^3/ul MPV (7.4-10.4) um3 Neut % (Auto) (38-83) % Lymph % (Auto) (25-47) % [place] % (Auto) (1-9) % Eos % (Auto) (0-6) % Baso % (Auto) (0-2) % Absolute Neuts (auto) (1.5-7.7) 10^3/ul Absolute Lymphs (auto) (1.0-4.8) 10^3/ul Absolute Monos (auto) (0-0.8) 10^3/ul Absolute Eos (auto) (0-0.6) 10^3/ul Absolute Basos (auto) (0-0.2) 10^3/ul Absolute Nucleated RBC 10^3/ul Nucleated RBC % INR (Anticoag Therapy) (0.89-1.11) Sodium 135 (133-145) mmol/L Potassium 3.8 (3.5-5.0) mmol/L Chloride 98 L (101-111) mmol/L Carbon Dioxide 26 (22-32) mmol/L Anion Gap 11 (2-11) mmol/L BUN 19 (6-24) mg/dL Creatinine 0.92 (0.67-1.17) mg/dL Est GFR ( Amer) 103.4 (>60) Est GFR (Non-Af Amer) 80.4 (>60) BUN/Creatinine Ratio 20.7 H (8-20) Glucose 126 H (70-100) mg/dL Lactic Acid 1.1 (0.5-2.0) mmol/L Calcium 9.5 (8.6-10.3) mg/dL Total Bilirubin 1.20 H (0.2-1.0) mg/dL AST 23 (13-39) U/L ALT 22 (7-52) U/L Alkaline Phosphatase 59 (34-104) U/L Troponin I 0.00 (<0.04) ng/mL C-Reactive Protein 55.31 H (< 5.00) mg/L Total Protein 7.7 (6.4-8.9) g/dL Albumin 4.7 (3.2-5.2) g/dL Globulin 3.0 (2-4) g/dL Albumin/Globulin Ratio 1.6 (1-3) Urine Color Urine Appearance Urine pH (5-9) Ur Specific [place] (1.010-1.030) Urine Protein (Negative) Urine Ketones (Negative) Urine Blood (Negative) Urine Nitrate (Negative) Urine Bilirubin (Negative) Urine Urobilinogen (Negative) Ur Leukocyte Esterase (Negative) Urine WBC (Auto) (Absent) Urine RBC (Auto) (Absent) Urine Bacteria (Absent) Hyaline Casts (Absent) Urine Glucose (Negative) Result Diagrams: 02/25/17 08:55 02/25/17 08:55 Lab Statement: Any lab studies that have been ordered have been reviewed, and results considered in the medical decision making process. - CT Abdomen/Pelvis CT CT Interpretation: Positive (See Comments) - IMPRESSION: 1. Cholelithiasis. 2. Scant pancreatic calcifications, unchaged. 3. No CT evidence of urolithiasis. 4. Extensive diverticula of the sigmoid and descending colon. No CT findings specific for acute diverticulitis. 5. Tiny periumbilical hernia. ED physician has reviewed this radiology report and agrees. CT Interpretation Completed By: Phong PAZ Course/Dx - Course Assessment/Plan: Pt is a 76 y/o male presenting to [facility] c/o dysuria and fatigue. He has a PMHx of prostatitis. Pt called Dr. Ramos's office last night and was told to come to the ED. He has an upcoming appointment on 03/01/17 but couldn't wait any longer. Dr. Ramos came to the ED and saw the pt. - Diagnoses Provider Diagnoses: Prostatitis - Physician Notifications Discussed Care Of Patient With: Harinder Ramos Time Discussed With Above Provider: 11:03 Instructed by Provider To: Other - Discussed the pt's case with Dr. Ramos. He will come see the pt in the ED. Discharge - Discharge Plan Condition: Stable Disposition: ADMITTED TO [facility] The documentation as recorded by the Tye billingsley Angela accurately reflects the service I personally performed and the decisions made by me, Yovani Jackson MD.
[2017-02-25] MEDS: Aspirin Low Dose CHEW TAB* 81 MG PO SCH (18:39)
[2017-02-25] MEDS: CMCS Pravastatin (NF) 20 MG TAB PO SCH (18:39)
[2017-02-25] MEDS: Gemfibrozil TAB* 600 MG PO SCH (18:40)
[2017-02-25] MEDS: DESLORATIDINE 5 MG PO SCH (21:56)
[2017-02-25] MEDS: Doxepin (NF) 25 MG CAP PO SCH (21:57)
--- NOTE | 2017-02-25 22:20 | HP ---
HISTORY AND PHYSICAL:* ADDENDUM: Mr. Allison is a 76-year-old male who has had problems with urinary tract infection for the past couple of weeks treated with Keflex repeatedly. Today, he presents with fever, leukocytosis and once again abnormal urinalysis. The patient was seen by Dr. Ramos from Urology who recommended treatment with ceftriaxone. At this time, the working diagnosis is acute cystitis and possible prostatitis. For further details of the patient's presentation and plan, please see history and physical dictated by Chris Castro on 02/25/17 with which I agree. [id number]/[facility] #: [id number] MTDD
[2017-02-25] MEDS: Polyethylene Glycol 3350* 17 GM PACKET PO SCH (22:38)
[2017-02-26] MEDS: NS 0.9% 1000 ML* 1,000 ML IV SCH (00:42)
--- NOTE | 2017-02-26 00:50 | CONS ---
CONSULTATION NOTE: DATE OF CONSULT: 02/25/17 LOCATION: The patient is in room #402. HISTORY OF PRESENT ILLNESS: Mr. Allison is a 76-year-old white male whom I have been following because of bladder outlet obstruction. Over the last 3 weeks, he has been complaining of increasing urgency, frequency, suprapubic discomfort, and voiding in relatively small amounts. Evaluation in the office included bladder ultrasound, which showed a small to moderate postvoid residual. His urinalyses have been negative. Rectal exam had shown a moderately enlarged, somewhat tender, but a non-suspicious prostate. The patient was treated with 2 courses of Keflex with no improvement in his voiding. He has been maintained on tamsulosin. He came yesterday to my office because of increasing voiding symptoms with a significant degree of urgency, frequency, and nocturia. He did not have any fever or chills. His bladder ultrasound yesterday showed a small postvoid residual and his urinalysis was again negative. His vital signs were normal, and he was not febrile. He was asked to continue on the tamsulosin and he was scheduled to have an office cystoscopy next week. Last night, the patient's symptoms became a lot worse and he started having chills and sweats. His frequency became a lot worse and he presented to the emergency room at night. In the emergency room, his temperature was 99. His urinalysis was positive for infection. His white count was elevated at about 17 ,000 and there was a left shift. Noncontrast CT of the abdomen and pelvis was within normal. There were changes of diverticulosis, but there were no diverticulitis and no renal calculi, no hydronephrosis and no pelvic masses. His postvoid bladder ultrasound in the emergency room showed minimal residual urine. The patient reported that yesterday he saw blood in his stools, but there was no other changes in his bowel movements. I think Mr. Allison has acute prostatitis that would explain his voiding symptoms, the chills, and the findings on urinalysis. I recommended admission for IV antibiotics. He will also need to be worked up for the blood in his stools. No urological procedures are planned at this time. After his full treatment for prostatitis, I will be doing a cystoscopy in the office to evaluate his bladder outlet and his bladder wall. [id number]/[facility] #: [id number] MTDD
[2017-02-26] MEDS: Acetaminophen TAB* 325 MG PO PRN ×2 (03:14→16:52)
[2017-02-26 06:02] LABS: Hematocrit 37 % (42-52); Hemoglobin 12.9 g/dl (14.0-18.0); Mean Corpuscular HGB Conc 35 g/dl (31-36); Mean Corpuscular Hemoglobin 32 pg (27-31); Mean Corpuscular Volume 93 fL (80-94); Mean Platelet Volume 8 um3 (7.4-10.4); Red Blood Count 4.01 10^6/ul (4.0-5.4); Red Cell Distribution Width 13 % (10.5-15); White Blood Count 14.2 10^3/ul (3.5-10.8)
[2017-02-26 06:23] LABS: BUN/Creatinine Ratio 15.7 (8-20); Calcium 8.2 mg/dL (8.6-10.3); EGFR African American 116.5 (>60); EGFR Non-African American 90.6 (>60); Potassium 3.6 mmol/L (3.5-5.0)
[2017-02-26] MEDS: Heparin VIAL(*) 5000 UNITS/ML VIAL (FIVE THOUSAND) SUBCUT SCH ×3 (07:22→20:54)
[2017-02-26] MEDS: amLODIPine TAB* 5 MG PO SCH (07:44)
[2017-02-26] MEDS: Omeprazole CAP* 20 MG PO SCH (07:45)
[2017-02-26] MEDS: Multivitamins/Minerals TAB PO SCH (07:45)
[2017-02-26] MEDS: Gemfibrozil TAB* 600 MG PO SCH ×3 (07:45→16:53)
[2017-02-26] MEDS: Phenazopyridine TAB* 100 MG PO SCH ×3 (07:45→20:53)
[2017-02-26] MEDS: Polyethylene Glycol 3350* 17 GM PACKET PO SCH ×2 (07:46→20:51)
[2017-02-26] MEDS ORDERED: PROCHLORPERAZINE INJ 5 MG/ML 2 ML VIAL IV PRN (08:56)
[2017-02-26] MEDS ORDERED: Tamsulosin CAP* 0.4 MG PO SCH ×2 (09:00→21:00)
--- NOTE | 2017-02-26 09:27 | PN ---
Subjective Date of Service: 02/26/17 Interval History: Pt still feels poorly. Stated that hi urine looked "bloody" in the past 2 days. Had been tx with 2 courses of Keflex and fever recurred within 24 hrs after antibiotics were stopped. Was noted to have >600 ml post void residual and Shaw was placed last night Objective Active Medications: Acetaminophen (Tylenol Tab*) 650 mg PO Q4H PRN PRN Reason: FEVER/PAIN Last Admin: 02/26/17 03:14 Dose: 650 mg Hydrocodone Bitart/Acetaminophen ([place] 5-325 Tab*) 1 tab PO Q4H PRN PRN Reason: PAIN Last Admin: 02/25/17 19:51 Dose: 1 tab Alprazolam (Xanax Tab*) 0.5 mg PO TID PRN PRN Reason: ANXIETY Last Admin: 02/25/17 22:36 Dose: 0.5 mg Amlodipine Besylate (Norvasc Tab*) 2.5 mg PO QAM [facility] Last Admin: 02/26/17 07:44 Dose: 2.5 mg Aspirin (Aspirin Low Dose Tab*) 81 mg PO QPM [facility] Last Admin: 02/25/17 18:39 Dose: 81 mg Desloratadine (Clarinex (Nf)) 5 mg PO BEDTIME [facility] PRN Reason: Protocol Last Admin: 02/25/17 21:56 Dose: Not Given Doxepin HCl (Doxepin (Nf)) 20 mg PO BEDTIME [facility] PRN Reason: Protocol Last Admin: 02/25/17 21:57 Dose: Not Given Gemfibrozil (Lopid Tab*) 600 mg PO TID AC [facility] Last Admin: 02/26/17 07:45 Dose: 600 mg Heparin Sodium (Porcine) (Heparin Vial(*)) 5,000 units SUBCUT Q8HR [facility] Last Admin: 02/26/17 07:22 Dose: 5,000 units Sodium Chloride (Ns 0.9% 1000 Ml*) 1,000 mls @ 100 mls/hr IV PER RATE [facility] Last Admin: 02/26/17 00:42 Dose: 100 mls/hr Ceftriaxone Sodium 2,000 mg/ (Sodium Chloride) 100 mls @ 200 mls/hr IVPB 1200 AMEE Multivitamins/Minerals (Theragran/Minerals Tab*) 1 tab PO DAILY [facility] Last Admin: 02/26/17 07:45 Dose: 1 tab Omeprazole (Prilosec Cap*) 20 mg PO QAM [facility] Last Admin: 02/26/17 07:45 Dose: 20 mg Phenazopyridine HCl (Pyridium Tab*) 100 mg PO TID [facility] Stop: 02/28/17 09:00 Last Admin: 02/26/17 07:45 Dose: 100 mg Polyethylene Glycol/Electrolytes (Miralax*) 17 gm PO DAILY [facility] Last Admin: 02/26/17 07:46 Dose: Not Given Pravastatin Sodium (Pravachol (Nf)) 5 mg PO QPM [facility] Last Admin: 02/25/17 18:39 Dose: 5 mg Prochlorperazine Edisylate (Compazine Inj*) 5 mg IV Q6H PRN PRN Reason: NAUSEA/VOMITING Last Admin: 02/26/17 09:09 Dose: 5 mg Tamsulosin HCl (Flomax Cap*) 0.4 mg PO 2100 [facility] Vital Signs 02/25/17 02/25/17 02/25/17 13:25 13:26 14:12 Temperature 98.3 F 98.3 F Pulse Rate 96 96 Respiratory 18 18 18 Rate Blood Pressure 160/78 160/78 (mmHg) O2 Sat by Pulse 100 100 Oximetry 02/25/17 02/25/17 02/25/17 15:49 16:12 19:32 Temperature 99.4 F 98.5 F Pulse Rate 81 94 Respiratory 23 16 22 Rate Blood Pressure 135/61 154/70 (mmHg) O2 Sat by Pulse 94 96 Oximetry 02/25/17 02/25/17 02/25/17 19:51 19:55 21:51 Temperature Pulse Rate Respiratory 20 20 20 Rate Blood Pressure (mmHg) O2 Sat by Pulse 96 Oximetry 02/25/17 02/25/17 02/26/17 22:36 23:18 00:36 Temperature 98.5 F Pulse Rate 73 Respiratory 20 21 20 Rate Blood Pressure 130/60 (mmHg) O2 Sat by Pulse 93 Oximetry 02/26/17 02/26/17 02/26/17 03:07 04:17 07:34 Temperature 100.3 F 99.2 F 98.9 F Pulse Rate 82 77 73 Respiratory 16 18 Rate Blood Pressure 149/70 148/70 (mmHg) O2 Sat by Pulse 93 94 96 Oximetry 02/26/17 07:35 Temperature Pulse Rate Respiratory 16 Rate Blood Pressure (mmHg) O2 Sat by Pulse Oximetry Oxygen Devices in Use Now: None Appearance: 76 yo M in nAD, aAOx3 Eyes: No Scleral Icterus, PERRLA Ears/Nose/Mouth/Throat: NL Teeth, Lips, Gums, Mucous Membranes Moist Neck: NL Appearance and Movements; NL JVP, Trachea Midline Respiratory: Symmetrical Chest Expansion and Respiratory Effort, Clear to Auscultation Cardiovascular: NL Sounds; No Murmurs; No JVD, RRR Abdominal: No Hepatosplenomegaly, - - +suprapubic tenderness, no rebound, no guarding, BS+, no CVA tenderness b/l Lymphatic: No Cervical Adenopathy Extremities: No Edema, No Clubbing, Cyanosis Skin: No Rash or Ulcers, No Nodules or Sclerosis Neurological: Alert and Oriented x 3, NL Muscle Strength and Tone Result Diagrams: 02/26/17 05:23 02/26/17 05:23 Additional Lab and Data: Lab Results 02/25/17 02/25/17 02/25/17 Range/Units 08:55 08:55 08:55 WBC 16.3 H (3.5-10.8) 10^3/ul RBC 4.70 (4.0-5.4) 10^6/ul Hgb 15.3 (14.0-18.0) g/dl Hct 44 (42-52) % MCV 93 (80-94) fL MCH 33 H (27-31) pg MCHC 35 (31-36) g/dl RDW 13 (10.5-15) % Plt Count 205 (150-450) 10^3/ul MPV 8 (7.4-10.4) um3 Neut % (Auto) 91.2 H (38-83) % Lymph % (Auto) 4.1 L (25-47) % [place] % (Auto) 4.4 (1-9) % Eos % (Auto) 0.1 (0-6) % Baso % (Auto) 0.2 (0-2) % Absolute Neuts (auto) 14.9 H (1.5-7.7) 10^3/ul Absolute Lymphs (auto) 0.7 L (1.0-4.8) 10^3/ul Absolute Monos (auto) 0.7 (0-0.8) 10^3/ul Absolute Eos (auto) 0 (0-0.6) 10^3/ul Absolute Basos (auto) 0 (0-0.2) 10^3/ul Absolute Nucleated RBC 0 10^3/ul Nucleated RBC % 0 INR (Anticoag Therapy) 1.02 (0.89-1.11) Sodium (133-145) mmol/L Potassium (3.5-5.0) mmol/L Chloride (101-111) mmol/L Carbon Dioxide (22-32) mmol/L Anion Gap (2-11) mmol/L BUN (6-24) mg/dL Creatinine (0.67-1.17) mg/dL Est GFR ( Amer) (>60) Est GFR (Non-Af Amer) (>60) BUN/Creatinine Ratio (8-20) Glucose (70-100) mg/dL Lactic Acid (0.5-2.0) mmol/L Calcium (8.6-10.3) mg/dL Total Bilirubin (0.2-1.0) mg/dL AST (13-39) U/L ALT (7-52) U/L Alkaline Phosphatase (34-104) U/L Troponin I (<0.04) ng/mL C-Reactive Protein (< 5.00) mg/L Total Protein (6.4-8.9) g/dL Albumin (3.2-5.2) g/dL Globulin (2-4) g/dL Albumin/Globulin Ratio (1-3) Urine Color Marti Urine Appearance Cloudy Urine pH 5.0 (5-9) Ur Specific [place] 1.026 (1.010-1.030) Urine Protein 2+(100 mg/dl) H (Negative) Urine Ketones 2+ H (Negative) Urine Blood 1+ H (Negative) Urine Nitrate Positive H (Negative) Urine Bilirubin Negative (Negative) Urine Urobilinogen Negative (Negative) Ur Leukocyte Esterase 3+ H (Negative) Urine WBC (Auto) 3+(>20/hpf) H (Absent) Urine RBC (Auto) 3+(>10/hpf) H (Absent) Urine Bacteria 1+ H (Absent) Hyaline Casts Present H (Absent) Urine Glucose Negative (Negative) 02/25/17 02/25/17 Range/Units 08:55 08:55 WBC (3.5-10.8) 10^3/ul RBC (4.0-5.4) 10^6/ul Hgb (14.0-18.0) g/dl Hct (42-52) % MCV (80-94) fL MCH (27-31) pg MCHC (31-36) g/dl RDW (10.5-15) % Plt Count (150-450) 10^3/ul MPV (7.4-10.4) um3 Neut % (Auto) (38-83) % Lymph % (Auto) (25-47) % [place] % (Auto) (1-9) % Eos % (Auto) (0-6) % Baso % (Auto) (0-2) % Absolute Neuts (auto) (1.5-7.7) 10^3/ul Absolute Lymphs (auto) (1.0-4.8) 10^3/ul Absolute Monos (auto) (0-0.8) 10^3/ul Absolute Eos (auto) (0-0.6) 10^3/ul Absolute Basos (auto) (0-0.2) 10^3/ul Absolute Nucleated RBC 10^3/ul Nucleated RBC % INR (Anticoag Therapy) (0.89-1.11) Sodium 135 (133-145) mmol/L Potassium 3.8 (3.5-5.0) mmol/L Chloride 98 L (101-111) mmol/L Carbon Dioxide 26 (22-32) mmol/L Anion Gap 11 (2-11) mmol/L BUN 19 (6-24) mg/dL Creatinine 0.92 (0.67-1.17) mg/dL Est GFR ( Amer) 103.4 (>60) Est GFR (Non-Af Amer) 80.4 (>60) BUN/Creatinine Ratio 20.7 H (8-20) Glucose 126 H (70-100) mg/dL Lactic Acid 1.1 (0.5-2.0) mmol/L Calcium 9.5 (8.6-10.3) mg/dL Total Bilirubin 1.20 H (0.2-1.0) mg/dL AST 23 (13-39) U/L ALT 22 (7-52) U/L Alkaline Phosphatase 59 (34-104) U/L Troponin I 0.00 (<0.04) ng/mL C-Reactive Protein 55.31 H (< 5.00) mg/L Total Protein 7.7 (6.4-8.9) g/dL Albumin 4.7 (3.2-5.2) g/dL Globulin 3.0 (2-4) g/dL Albumin/Globulin Ratio 1.6 (1-3) Urine Color Urine Appearance Urine pH (5-9) Ur Specific [place] (1.010-1.030) Urine Protein (Negative) Urine Ketones (Negative) Urine Blood (Negative) Urine Nitrate (Negative) Urine Bilirubin (Negative) Urine Urobilinogen (Negative) Ur Leukocyte Esterase (Negative) Urine WBC (Auto) (Absent) Urine RBC (Auto) (Absent) Urine Bacteria (Absent) Hyaline Casts (Absent) Urine Glucose (Negative) Assess/Plan/Problems-Billing Assessment: 76 yo M with h/o HTRN, dyslipidemia, anxiety with prostatitis - Patient Problems (1) Acute prostatitis with hematuria Comment: cont Ceftriaxone and Pyridium appreciate Dr. Ramos's consult cont IVF Leukocytosis improving sill low grade fevers Cx pending (2) Urinary retention Comment: cont Shaw for now due to prostatitis Educated pt that likley Shaw will be continued past discharge (3) HTN (hypertension) Comment: controled, cont Norvasc (4) Dyslipidemia Comment: cont gemfibrozil (5) DVT prophylaxis Comment: heparin sc Status and Disposition: inpatient for prostatitis that failed outpatient tx.
[2017-02-26] MEDS: ALPRAZolam TAB* 0.5 MG PO PRN ×3 (15:31→20:52)
[2017-02-26] MEDS: CMC:Alfuzosin ER (NF) 10 MG TAB.ER PO SCH (16:52)
[2017-02-26] MEDS: CMCS Pravastatin (NF) 20 MG TAB PO SCH (17:31)
[2017-02-26] MEDS: Aspirin Low Dose CHEW TAB* 81 MG PO SCH (17:32)
[2017-02-26] MEDS: HYDROcodone/ACETAMIN 5-325 MG* 1 TAB PO PRN (17:32)
[2017-02-26] MEDS: Temazepam CAP* 15 MG PO PRN (20:52)
[2017-02-26] MEDS: DESLORATIDINE 5 MG PO SCH (20:53)
[2017-02-26] MEDS: Doxepin (NF) 25 MG CAP PO SCH (20:53)
[2017-02-27] MEDS: Heparin VIAL(*) 5000 UNITS/ML VIAL (FIVE THOUSAND) SUBCUT SCH ×3 (06:50→21:07)
[2017-02-27] MEDS: Gemfibrozil TAB* 600 MG PO SCH ×3 (08:04→16:57)
[2017-02-27] MEDS: amLODIPine TAB* 5 MG PO SCH (08:05)
[2017-02-27] MEDS: Phenazopyridine TAB* 100 MG PO SCH ×3 (08:05→21:06)
[2017-02-27] MEDS: Omeprazole CAP* 20 MG PO SCH (08:05)
[2017-02-27] MEDS: CMC:Alfuzosin ER (NF) 10 MG TAB.ER PO SCH (08:06)
[2017-02-27] MEDS: Multivitamins/Minerals TAB PO SCH (08:06)
[2017-02-27 08:46] LABS: Hematocrit 37 % (42-52); Hemoglobin 12.7 g/dl (14.0-18.0); Mean Corpuscular HGB Conc 35 g/dl (31-36); Mean Corpuscular Hemoglobin 32 pg (27-31); Mean Corpuscular Volume 91 fL (80-94); Mean Platelet Volume 8 um3 (7.4-10.4); Red Blood Count 3.99 10^6/ul (4.0-5.4); Red Cell Distribution Width 13 % (10.5-15); White Blood Count 11.4 10^3/ul (3.5-10.8)
[2017-02-27 09:00] LABS: BUN/Creatinine Ratio 14.7 (8-20); Calcium 8.6 mg/dL (8.6-10.3); EGFR African American 130.9 (>60); EGFR Non-African American 101.8 (>60); Potassium 3.3 mmol/L (3.5-5.0)
[2017-02-27] MEDS ORDERED: Potassium Chloride LIQUID* 20 MEQ PACKET PO ONE (11:00)
--- NOTE | 2017-02-27 12:37 | PN ---
Subjective Date of Service: 02/27/17 Interval History: pt feels "so much better".Slept all night. appetite good Objective Active Medications: Acetaminophen (Tylenol Tab*) 650 mg PO Q4H PRN PRN Reason: FEVER/PAIN Last Admin: 02/26/17 16:52 Dose: 650 mg Hydrocodone Bitart/Acetaminophen ([place] 5-325 Tab*) 1 tab PO Q4H PRN PRN Reason: PAIN Last Admin: 02/26/17 17:32 Dose: 1 tab Alfuzosin HCl (Uroxatral (Nf)) 10 mg PO DAILY [facility] Last Admin: 02/27/17 08:06 Dose: 10 mg Alprazolam (Xanax Tab*) 0.5 mg PO TID PRN PRN Reason: ANXIETY Last Admin: 02/26/17 20:52 Dose: 0.5 mg Amlodipine Besylate (Norvasc Tab*) 2.5 mg PO QAM [facility] Last Admin: 02/27/17 08:05 Dose: 2.5 mg Aspirin (Aspirin Low Dose Tab*) 81 mg PO QPM [facility] Last Admin: 02/26/17 17:32 Dose: 81 mg Desloratadine (Clarinex (Nf)) 5 mg PO BEDTIME [facility] PRN Reason: Protocol Last Admin: 02/26/17 20:53 Dose: Not Given Doxepin HCl (Doxepin (Nf)) 20 mg PO BEDTIME [facility] PRN Reason: Protocol Last Admin: 02/26/17 20:53 Dose: Not Given Gemfibrozil (Lopid Tab*) 600 mg PO TID AC [facility] Last Admin: 02/27/17 11:22 Dose: Not Given Heparin Sodium (Porcine) (Heparin Vial(*)) 5,000 units SUBCUT Q8HR [facility] Last Admin: 02/27/17 06:50 Dose: 5,000 units Ceftriaxone Sodium 2,000 mg/ (Sodium Chloride) 100 mls @ 200 mls/hr IVPB 1200 [facility] Last Admin: 02/27/17 11:39 Dose: 200 mls/hr Multivitamins/Minerals (Theragran/Minerals Tab*) 1 tab PO DAILY [facility] Last Admin: 02/27/17 08:06 Dose: 1 tab Omeprazole (Prilosec Cap*) 20 mg PO QAM [facility] Last Admin: 02/27/17 08:05 Dose: 20 mg Phenazopyridine HCl (Pyridium Tab*) 100 mg PO TID [facility] Stop: 02/28/17 09:00 Last Admin: 02/27/17 08:05 Dose: 100 mg Polyethylene Glycol/Electrolytes (Miralax*) 17 gm PO 2100 [facility] Last Admin: 02/26/17 20:51 Dose: 17 gm Pravastatin Sodium (Pravachol (Nf)) 5 mg PO QPM [facility] Last Admin: 02/26/17 17:31 Dose: 5 mg Prochlorperazine Edisylate (Compazine Inj*) 5 mg IV Q6H PRN PRN Reason: NAUSEA/VOMITING Last Admin: 02/26/17 09:09 Dose: 5 mg Temazepam (Restoril Cap*) 15 mg PO BEDTIME PRN PRN Reason: INSOMNIA Last Admin: 02/26/17 20:52 Dose: 15 mg Vital Signs 02/26/17 02/26/17 02/26/17 15:31 15:42 16:50 Temperature 100.3 F 101.9 F Pulse Rate 69 Respiratory 16 22 Rate Blood Pressure 128/57 (mmHg) O2 Sat by Pulse 95 Oximetry 02/26/17 02/26/17 02/26/17 17:32 19:32 19:34 Temperature 98.1 F Pulse Rate 75 Respiratory 16 20 22 Rate Blood Pressure 122/62 (mmHg) O2 Sat by Pulse 93 Oximetry 02/26/17 02/26/17 02/26/17 20:52 22:52 22:55 Temperature Pulse Rate Respiratory 20 18 20 Rate Blood Pressure (mmHg) O2 Sat by Pulse Oximetry 02/26/17 02/26/17 02/27/17 22:56 23:27 03:24 Temperature 96.1 F 98.6 F Pulse Rate 64 73 Respiratory 20 16 16 Rate Blood Pressure 119/56 129/67 (mmHg) O2 Sat by Pulse 92 94 Oximetry 02/27/17 02/27/17 02/27/17 07:31 07:39 08:00 Temperature 98.5 F Pulse Rate 68 Respiratory 20 16 Rate Blood Pressure 120/64 (mmHg) O2 Sat by Pulse 94 94 Oximetry Oxygen Devices in Use Now: None Appearance: 76 yo M in nAd, aAOx3 Eyes: No Scleral Icterus, PERRLA Ears/Nose/Mouth/Throat: NL Teeth, Lips, Gums, Mucous Membranes Moist Neck: NL Appearance and Movements; NL JVP, Trachea Midline Respiratory: Symmetrical Chest Expansion and Respiratory Effort, Clear to Auscultation Cardiovascular: NL Sounds; No Murmurs; No JVD, RRR Abdominal: NL Sounds; No Tenderness; No Distention Lymphatic: No Cervical Adenopathy Extremities: No Edema, No Clubbing, Cyanosis Skin: No Rash or Ulcers, No Nodules or Sclerosis Neurological: Alert and Oriented x 3, NL Muscle Strength and Tone Result Diagrams: 02/27/17 08:22 02/27/17 08:22 Additional Lab and Data: Lab Results 02/25/17 02/25/17 02/25/17 Range/Units 08:55 08:55 08:55 WBC 16.3 H (3.5-10.8) 10^3/ul RBC 4.70 (4.0-5.4) 10^6/ul Hgb 15.3 (14.0-18.0) g/dl Hct 44 (42-52) % MCV 93 (80-94) fL MCH 33 H (27-31) pg MCHC 35 (31-36) g/dl RDW 13 (10.5-15) % Plt Count 205 (150-450) 10^3/ul MPV 8 (7.4-10.4) um3 Neut % (Auto) 91.2 H (38-83) % Lymph % (Auto) 4.1 L (25-47) % [place] % (Auto) 4.4 (1-9) % Eos % (Auto) 0.1 (0-6) % Baso % (Auto) 0.2 (0-2) % Absolute Neuts (auto) 14.9 H (1.5-7.7) 10^3/ul Absolute Lymphs (auto) 0.7 L (1.0-4.8) 10^3/ul Absolute Monos (auto) 0.7 (0-0.8) 10^3/ul Absolute Eos (auto) 0 (0-0.6) 10^3/ul Absolute Basos (auto) 0 (0-0.2) 10^3/ul Absolute Nucleated RBC 0 10^3/ul Nucleated RBC % 0 INR (Anticoag Therapy) 1.02 (0.89-1.11) Sodium (133-145) mmol/L Potassium (3.5-5.0) mmol/L Chloride (101-111) mmol/L Carbon Dioxide (22-32) mmol/L Anion Gap (2-11) mmol/L BUN (6-24) mg/dL Creatinine (0.67-1.17) mg/dL Est GFR ( Amer) (>60) Est GFR (Non-Af Amer) (>60) BUN/Creatinine Ratio (8-20) Glucose (70-100) mg/dL Lactic Acid (0.5-2.0) mmol/L Calcium (8.6-10.3) mg/dL Total Bilirubin (0.2-1.0) mg/dL AST (13-39) U/L ALT (7-52) U/L Alkaline Phosphatase (34-104) U/L Troponin I (<0.04) ng/mL C-Reactive Protein (< 5.00) mg/L Total Protein (6.4-8.9) g/dL Albumin (3.2-5.2) g/dL Globulin (2-4) g/dL Albumin/Globulin Ratio (1-3) Urine Color Marti Urine Appearance Cloudy Urine pH 5.0 (5-9) Ur Specific [place] 1.026 (1.010-1.030) Urine Protein 2+(100 mg/dl) H (Negative) Urine Ketones 2+ H (Negative) Urine Blood 1+ H (Negative) Urine Nitrate Positive H (Negative) Urine Bilirubin Negative (Negative) Urine Urobilinogen Negative (Negative) Ur Leukocyte Esterase 3+ H (Negative) Urine WBC (Auto) 3+(>20/hpf) H (Absent) Urine RBC (Auto) 3+(>10/hpf) H (Absent) Urine Bacteria 1+ H (Absent) Hyaline Casts Present H (Absent) Urine Glucose Negative (Negative) 02/25/17 02/25/17 Range/Units 08:55 08:55 WBC (3.5-10.8) 10^3/ul RBC (4.0-5.4) 10^6/ul Hgb (14.0-18.0) g/dl Hct (42-52) % MCV (80-94) fL MCH (27-31) pg MCHC (31-36) g/dl RDW (10.5-15) % Plt Count (150-450) 10^3/ul MPV (7.4-10.4) um3 Neut % (Auto) (38-83) % Lymph % (Auto) (25-47) % [place] % (Auto) (1-9) % Eos % (Auto) (0-6) % Baso % (Auto) (0-2) % Absolute Neuts (auto) (1.5-7.7) 10^3/ul Absolute Lymphs (auto) (1.0-4.8) 10^3/ul Absolute Monos (auto) (0-0.8) 10^3/ul Absolute Eos (auto) (0-0.6) 10^3/ul Absolute Basos (auto) (0-0.2) 10^3/ul Absolute Nucleated RBC 10^3/ul Nucleated RBC % INR (Anticoag Therapy) (0.89-1.11) Sodium 135 (133-145) mmol/L Potassium 3.8 (3.5-5.0) mmol/L Chloride 98 L (101-111) mmol/L Carbon Dioxide 26 (22-32) mmol/L Anion Gap 11 (2-11) mmol/L BUN 19 (6-24) mg/dL Creatinine 0.92 (0.67-1.17) mg/dL Est GFR ( Amer) 103.4 (>60) Est GFR (Non-Af Amer) 80.4 (>60) BUN/Creatinine Ratio 20.7 H (8-20) Glucose 126 H (70-100) mg/dL Lactic Acid 1.1 (0.5-2.0) mmol/L Calcium 9.5 (8.6-10.3) mg/dL Total Bilirubin 1.20 H (0.2-1.0) mg/dL AST 23 (13-39) U/L ALT 22 (7-52) U/L Alkaline Phosphatase 59 (34-104) U/L Troponin I 0.00 (<0.04) ng/mL C-Reactive Protein 55.31 H (< 5.00) mg/L Total Protein 7.7 (6.4-8.9) g/dL Albumin 4.7 (3.2-5.2) g/dL Globulin 3.0 (2-4) g/dL Albumin/Globulin Ratio 1.6 (1-3) Urine Color Urine Appearance Urine pH (5-9) Ur Specific [place] (1.010-1.030) Urine Protein (Negative) Urine Ketones (Negative) Urine Blood (Negative) Urine Nitrate (Negative) Urine Bilirubin (Negative) Urine Urobilinogen (Negative) Ur Leukocyte Esterase (Negative) Urine WBC (Auto) (Absent) Urine RBC (Auto) (Absent) Urine Bacteria (Absent) Hyaline Casts (Absent) Urine Glucose (Negative) Microbiology and Other Data: Microbiology 02/27/17 09:52 Stool Occult Blood (GABBIE) - Final Stool Assess/Plan/Problems-Billing Assessment: 76 yo M with h/o HTRN, dyslipidemia, anxiety with prostatitis - Patient Problems (1) Acute prostatitis with hematuria Comment: cont Ceftriaxone and Pyridium appreciate Dr. Ramos's consult Leukocytosis improving Fevers resolved Cx positive for Klebsiela pneumo (2) Urinary retention Comment: cont Shaw for now due to prostatitis Educated pt that likley Shaw will be continued past discharge (3) HTN (hypertension) Comment: controled, cont Norvasc (4) Dyslipidemia Comment: cont gemfibrozil (5) DVT prophylaxis Comment: heparin sc Status and Disposition: inpatient for prostatitis that failed outpatient tx. suspect he will need approx 2 more days of IV antibiotics. He was tx with 2 round of Keflex in the past 1 month with poor results
[2017-02-27] MEDS: CMCS Pravastatin (NF) 20 MG TAB PO SCH (16:57)
[2017-02-27] MEDS: Aspirin Low Dose CHEW TAB* 81 MG PO SCH (16:57)
[2017-02-27] MEDS: Polyethylene Glycol 3350* 17 GM PACKET PO SCH (21:05)
[2017-02-27] MEDS: Temazepam CAP* 15 MG PO PRN (21:06)
[2017-02-27] MEDS: ALPRAZolam TAB* 0.5 MG PO PRN (21:06)
[2017-02-27] MEDS: DESLORATIDINE 5 MG PO SCH (23:00)
[2017-02-27] MEDS: Doxepin (NF) 25 MG CAP PO SCH (23:01)
[2017-02-28 05:21] LABS: Hematocrit 39 % (42-52); Hemoglobin 13.4 g/dl (14.0-18.0); Mean Corpuscular HGB Conc 35 g/dl (31-36); Mean Corpuscular Hemoglobin 32 pg (27-31); Mean Corpuscular Volume 92 fL (80-94); Mean Platelet Volume 8 um3 (7.4-10.4); Red Blood Count 4.19 10^6/ul (4.0-5.4); Red Cell Distribution Width 13 % (10.5-15); White Blood Count 8.7 10^3/ul (3.5-10.8)
[2017-02-28 05:33] LABS: BUN/Creatinine Ratio 17.6 (8-20); Calcium 8.7 mg/dL (8.6-10.3); EGFR African American 146.6 (>60); Potassium 3.8 mmol/L (3.5-5.0)
[2017-02-28] MEDS: Heparin VIAL(*) 5000 UNITS/ML VIAL (FIVE THOUSAND) SUBCUT SCH ×3 (06:03→21:10)
[2017-02-28] MEDS: Omeprazole CAP* 20 MG PO SCH (07:31)
[2017-02-28] MEDS: Gemfibrozil TAB* 600 MG PO SCH ×4 (07:32→16:30)
[2017-02-28] MEDS: CMC:Alfuzosin ER (NF) 10 MG TAB.ER PO SCH (08:41)
[2017-02-28] MEDS: amLODIPine TAB* 5 MG PO SCH (08:43)
[2017-02-28] MEDS: Multivitamins/Minerals TAB PO SCH (08:43)
[2017-02-28] MEDS: Phenazopyridine TAB* 100 MG PO SCH (08:44)
[2017-02-28] MEDS ORDERED: Ciprofloxacin TAB* 500 MG PO ONE (09:53)
--- NOTE | 2017-02-28 15:44 | PN ---
Subjective Date of Service: 02/28/17 Interval History: . patient feeling better overall concerned about hidalgo leakage; but only one significant event. hidalgo in place -- draining clear yellow urine. ongoing ceftriaxone; I researched switch to oral cipro and found that unlikely association between cipro and urticaria [I called [facility] and spoke with Dr. Griffiths, who he has seen before] So, will start oral cipro here and expect dc tomorrow AM... urology follow up requested with Dr. Ramos. . Family History: Unchanged from Admission Social History: Unchanged from Admission Past Medical History: Unchanged from Admission Objective Active Medications: . Acetaminophen (Tylenol Tab*) 650 mg PO Q4H PRN PRN Reason: FEVER/PAIN Last Admin: 02/26/17 16:52 Dose: 650 mg Hydrocodone Bitart/Acetaminophen ([place] 5-325 Tab*) 1 tab PO Q4H PRN PRN Reason: PAIN Last Admin: 02/26/17 17:32 Dose: 1 tab Alfuzosin HCl (Uroxatral (Nf)) 10 mg PO DAILY [facility] Last Admin: 02/28/17 08:41 Dose: 10 mg Alprazolam (Xanax Tab*) 0.5 mg PO TID PRN PRN Reason: ANXIETY Last Admin: 02/27/17 21:06 Dose: 0.5 mg Amlodipine Besylate (Norvasc Tab*) 2.5 mg PO QAM [facility] Last Admin: 02/28/17 08:43 Dose: 2.5 mg Aspirin (Aspirin Low Dose Tab*) 81 mg PO QPM [facility] Last Admin: 02/27/17 16:57 Dose: 81 mg Desloratadine (Clarinex (Nf)) 5 mg PO BEDTIME [facility] PRN Reason: Protocol Last Admin: 02/27/17 23:00 Dose: Not Given Doxepin HCl (Doxepin (Nf)) 20 mg PO BEDTIME [facility] PRN Reason: Protocol Last Admin: 02/27/17 23:01 Dose: Not Given Gemfibrozil (Lopid Tab*) 600 mg PO TID AC [facility] Last Admin: 02/28/17 12:30 Dose: Not Given Heparin Sodium (Porcine) (Heparin Vial(*)) 5,000 units SUBCUT Q8HR [facility] Last Admin: 02/28/17 13:48 Dose: 5,000 units Ceftriaxone Sodium 2,000 mg/ (Sodium Chloride) 100 mls @ 200 mls/hr IVPB 1200 [facility] Last Admin: 02/28/17 11:59 Dose: 200 mls/hr Multivitamins/Minerals (Theragran/Minerals Tab*) 1 tab PO DAILY [facility] Last Admin: 02/28/17 08:43 Dose: 1 tab Omeprazole (Prilosec Cap*) 20 mg PO QAM [facility] Last Admin: 02/28/17 07:31 Dose: 20 mg Polyethylene Glycol/Electrolytes (Miralax*) 17 gm PO 2100 [facility] Last Admin: 02/27/17 21:05 Dose: 17 gm Pravastatin Sodium (Pravachol (Nf)) 5 mg PO QPM [facility] Last Admin: 02/27/17 16:57 Dose: 5 mg Prochlorperazine Edisylate (Compazine Inj*) 5 mg IV Q6H PRN PRN Reason: NAUSEA/VOMITING Last Admin: 02/26/17 09:09 Dose: 5 mg Temazepam (Restoril Cap*) 15 mg PO BEDTIME PRN PRN Reason: INSOMNIA Last Admin: 02/27/17 21:06 Dose: 15 mg . Vital Signs 02/27/17 02/27/17 02/27/17 16:19 19:29 19:30 Temperature 98.4 F 97.8 F Pulse Rate 81 91 Respiratory 25 20 20 Rate Blood Pressure 127/58 136/76 (mmHg) O2 Sat by Pulse 95 95 Oximetry 02/27/17 02/27/17 02/27/17 21:06 22:02 23:06 Temperature 98.2 F Pulse Rate 104 Respiratory 18 16 18 Rate Blood Pressure 135/65 (mmHg) O2 Sat by Pulse 95 Oximetry Oxygen Devices in Use Now: None Appearance: NAD Eyes: No Scleral Icterus Ears/Nose/Mouth/Throat: Clear Oropharnyx Neck: Trachea Midline Respiratory: Symmetrical Chest Expansion and Respiratory Effort Cardiovascular: NL Sounds; No Murmurs; No JVD Abdominal: NL Sounds; No Tenderness; No Distention Lymphatic: No Cervical Adenopathy Extremities: No Edema Skin: No Rash or Ulcers Neurological: Alert and Oriented x 3 Lines/Tubes/Other Access: Clean, Dry and Intact Hidalgo - some minor leakage 2/2 bladder spasms, Clean, Dry and Intact Peripheral IV Nutrition: Taking PO's Result Diagrams: 02/28/17 04:48 02/28/17 04:48 Microbiology and Other Data: Microbiology 02/27/17 09:52 Stool Occult Blood (GABBIE) - Final Stool Assess/Plan/Problems-Billing . Assessment: 76 yo M with h/o HTN, dyslipidemia, anxiety with acute, recurrent prostatitis - Patient Problems (1) Acute prostatitis with hematuria Current Visit: Yes Status: Acute Priority: High Code(s): N41.0 - ACUTE PROSTATITIS Comment: - change Ceftriaxone to oral cipro - continue Pyridium - appreciate Dr. Ramos's consult and guidance - Leukocytosis improved / fevers resolved - UCX positive for Klebsiela pneumo (2) Dyslipidemia Current Visit: Yes Status: Acute Priority: High Code(s): E78.5 - HYPERLIPIDEMIA, UNSPECIFIED Comment: cont gemfibrozil (3) HTN (hypertension) Current Visit: Yes Status: Acute Priority: High Code(s): I10 - ESSENTIAL ( PRIMARY) HYPERTENSION Comment: - controled, cont Norvasc (4) Urinary retention Current Visit: Yes Status: Acute Priority: High Code(s): R33.9 - RETENTION OF URINE, UNSPECIFIED Comment: - cont Hidalgo for now; due to prostatitis - Pt understands he will be discharged with hidalgo and urology follow-up Status and Disposition: dc home tomorrow
[2017-02-28] MEDS: CMCS Pravastatin (NF) 20 MG TAB PO SCH (17:34)
[2017-02-28] MEDS: Aspirin Low Dose CHEW TAB* 81 MG PO SCH (17:36)
[2017-02-28] MEDS: Temazepam CAP* 15 MG PO PRN (21:09)
[2017-02-28] MEDS: ALPRAZolam TAB* 0.5 MG PO PRN (21:09)
[2017-02-28] MEDS: Polyethylene Glycol 3350* 17 GM PACKET PO SCH (21:10)
[2017-02-28] MEDS: LORATADINE 10 MG PO SCH ×2 (21:11→21:46)
[2017-02-28] MEDS: Doxepin (NF) 25 MG CAP PO SCH (21:11)
[2017-03-01] MEDS: Heparin VIAL(*) 5000 UNITS/ML VIAL (FIVE THOUSAND) SUBCUT SCH (06:33)
[2017-03-01] MEDS: Gemfibrozil TAB* 600 MG PO SCH ×2 (07:43→11:31)
[2017-03-01] MEDS: Omeprazole CAP* 20 MG PO SCH (07:46)
[2017-03-01] MEDS: Multivitamins/Minerals TAB PO SCH (08:55)
[2017-03-01] MEDS: amLODIPine TAB* 5 MG PO SCH (08:56)
[2017-03-01] MEDS: CMC:Alfuzosin ER (NF) 10 MG TAB.ER PO SCH (08:57)
[2017-03-01 10:07] VITALS: BP 142/76
[2017-03-01] MEDS ORDERED: Ciprofloxacin TAB* 500 MG PO STA (12:06)
--- NOTE | 2017-03-01 12:50 | PN ---
Hospitalist Progress Note . HOSPITALIST DISCHARGE NOTE: See dc instructions and summary by me. Patient stable for dc dc instructions reviewed with the patient at the bedside. DC patient home today.
--- NOTE | 2017-03-02 03:19 | DS ---
CC: Dr. Josiah Macias; Dr. Harinder Ramos * DISCHARGE SUMMARY: DATE OF ADMISSION: 02/25/17 DATE OF DISCHARGE: 03/01/17 PRIMARY CARE PROVIDER: Dr. Josiah Macias. OUTPATIENT UROLOGIST: Dr. Harinder Ramos. Followup with Dr. Ramos is going to be on , 03/03/17 - schedule premade by Dr. Ramos's office and the patient's family. Followup with Dr. Josiah Macias must be established ideally for the week of ____ _ - this was communicated to the patient and his , who are going to independently call [facility] for a followup appointment. PRINCIPAL DISCHARGE DIAGNOSES: 1. Bacterial prostatitis and Klebsiella urinary tract infection and related severe sepsis and altered mental status - resolved. 2. Urinary retention with indwelling Shaw catheter with retention secondary to infection. SECONDARY DIAGNOSES: 1. Gastroesophageal reflux disease. 2. Hyperlipidemia. 3. History of diverticulitis. 4. Overactive bladder/benign prostatic hypertrophy. 5. History of shingles. 6. Hypertension. 7. Pancreatitis. DISCHARGE MEDICATION REGIMEN: 1. New: Ciprofloxacin 500 mg by mouth twice daily for 3 weeks - course to be modified by Dr. Ramos as he sees fit. New medication: 1. Temazepam 50 mg by mouth at bedtime, not to exceed 1 dose per day (to be reevaluated by outpatient provider team). Continue: 1. Aspirin 81 mg by mouth daily. 2. Xanax 0.5 mg 3 times daily as needed. 3. Polyethylene glycol 17 g orally at bedtime as needed. 4. Omeprazole 20 mg by mouth every morning. 5. Gemfibrozil 600 mg by mouth 3 times daily before meals. 6. Pravastatin 5 mg by mouth daily. 7. Amlodipine 2.5 mg by mouth in the morning. 8. [place]-3 fatty acids 1000 mg by mouth daily. 9. Multivitamin/minerals 1 tab by mouth daily. 10. Tamsulosin/Flomax 0.4 mg by mouth daily. 11. Desloratadine/Clarinex 5 mg by mouth at bedtime. 12. Doxepin 20 mg by mouth at bedtime. HISTORY OF PRESENT ILLNESS AND HOSPITAL COURSE: Please see the H and P by nurse practitioner Chris Castro, under the supervision of Dr. Margarita Peter on 02/25/17. Also see Dr. Ramos's consultation on 02/25/17. In brief, Mr. Allison is a 76-year-old gentleman with a medical history detailed above who for the past 3 weeks or so has been suffering from prostatitis. He had multiple rounds of antibiotics specifically Keflex and despite this, he relapsed with feeling malaise and tired and dizzy. The patient had difficulty with urination, was having frequency and dysuria. He was having confusion. The patient had a peripheral white blood cell count elevated at 1600 and was deemed to require IV antibiotics. He was referred to the Hospitalist for admission and this was accomplished. The patient was started on ceftriaxone and urine culture grew out Klebsiella pneumoniae. The ceftriaxone was found to be effective against this sensitive organism. It was also found the patient had an allergy to ciprofloxacin, which could have been a good alternate oral antibiotic given the Keflex failure. On some research with [facility], it was very unlikely that ciprofloxacin caused the chronic urticaria and the patient was complaining of at that time. ciprofloxacin was labeled as a potential allergen. Accordingly, the patient was switched from ceftriaxone to ciprofloxacin nonetheless. He has had no problems. The patient is being discharged accordingly on ciprofloxacin and his allergy profile will be amended. I requested the patient to follow up with [facility] to complete his evaluation and then modify his allergy list at both his primary care as well as the hospital. The patient is stable for discharge. He did well during the hospitalization with Restoril and I supported him a one -time dose thereafter. He will get this from his primary care provider if it is needed. The patient is in good spirits and accompanied by his and he is to follow up with Dr. Ramos on . I note he is being discharged with an indwelling Shaw catheter for continued urinary retention and this will be reevaluated in the urologist office (Dr. Ramos) on 03/03/17. The patient was given supplies and instructions on how to maintain his Shaw catheter and he was discharged with clarity in his plan. TIME SPENT: Total time taken to discharge Mr. Allison was 75 minutes, greater than half that time was spent going over the discharge instructions face-to- face with the patient and his and answering various questions that they post. [id number]/[facility] #: [id number] [facility]
== END 2017-03-01 13:25 | disposition home or self-care (01) | DRG 728 ==
LOC: ED 09:17 → MED 12:18
PROVIDERS: ADMIT Internal Medicine; ATTEND Internal Medicine
DX: N41.0 Acute prostatitis (principal); N39.0 Urinary tract infection, site not specified; B96.1 Klebsiella pneumoniae [K. pneumoniae] as the cause of diseases classified elsewhere; I10 Essential (primary) hypertension; K21.9 Gastro-esophageal reflux disease without esophagitis; E78.5 Hyperlipidemia, unspecified; N32.81 Overactive bladder; K57.30 Diverticulosis of large intestine without perforation or abscess without bleeding; N32.0 Bladder-neck obstruction; N40.1 Benign prostatic hyperplasia with lower urinary tract symptoms; R31.9 Hematuria, unspecified; R33.8 Other retention of urine; Z79.82 Long term (current) use of aspirin; Z79.899 Other long term (current) drug therapy; Z88.1 Allergy status to other antibiotic agents; Z88.2 Allergy status to sulfonamides; Z88.8 Allergy status to other drugs, medicaments and biological substances; Z80.3 Family history of malignant neoplasm of breast; Z82.49 Family history of ischemic heart disease and other diseases of the circulatory system
CPT/HCPCS: 36415; 74176; 80048; 80053; 81003; 81015; 82272; 83605; 84484; 85025; 85610; 86140; 87040; 87077; 87086; 87186; A9270-GY; J0696; J0780; J1644

== ENCOUNTER 2017-05-04 12:59 | Emergency (ER) | payer MEDICARE ==
[2017-05-04 13:25] VITALS: BP 136/76
--- NOTE | 2017-05-04 14:36 | UC ---
Ear Complaint HPI - HPI Summary HPI Summary: TWO DAYS OF RIGHT EAR PAIN. NO FEVER. NO COUGH. TODAY BEGINNING TO HAVE THROAT SORENESS. - History of Current Complaint Chief Complaint: UCEar Stated Complaint: EAR PAIN SORE THROAT Time Seen by Provider: 05/04/17 13:24 Hx Obtained From: Patient, Family/Test Engineer Onset/Duration: Gradual Onset, Lasting Days Severity Initially: Moderate Severity Currently: Moderate Pain Intensity: 7 Pain Scale Used: 0-10 Numeric Associated Signs/Symptoms: Positive: URI Symptoms - Allergies/Home Medications Allergies/Adverse Reactions: Allergies Allergy/AdvReac Type Severity Reaction Status Date / Time Atorvastatin [From Lipitor] Allergy Severe Hives Verified 05/04/17 13:26 Ondansetron [From Zofran] Allergy Severe RASH, Verified 05/04/17 13:26 SWELLING Sulfa Drugs Allergy Intermediate Rash Verified 05/04/17 13:26 Cetirizine [From Zyrtec] Allergy Hives Verified 05/04/17 13:26 Clavulanic Acid Allergy See Comment Verified 05/04/17 13:26 [From Augmentin] Doxycycline Allergy See Comment Verified 05/04/17 13:26 Erythromycin Allergy Unknown Verified 05/04/17 13:26 Reaction Details Home Medications: Home Medications Finasteride [Proscar] 5 mg PO DAILY 05/04/17 [History Confirmed 05/04/17] Meloxicam(NF) [Mobic(NF)] 15 mg PO DAILY 05/04/17 [History Confirmed 05/04/17] PMH/Surg Hx/FS Hx/Imm Hx Previously Healthy: Yes Other History Of: Negative For: Anticoagulant Therapy - Surgical History Surgical History: Yes Surgery Procedure, Year, and Place: gangleon cyst - Family History Known Family History: Positive: Other - allergies Negative: Diabetes - Social History Occupation: Retired Lives: With Family Alcohol Use: None Substance Use Type: None Smoking Status (MU): Never Smoked Tobacco - Immunization History Most Recent Influenza Vaccination: yes 04/2017 Most Recent Pneumonia Vaccination: 2015 Review of Systems Constitutional: Negative Skin: Negative Eyes: Negative ENT: Sore Throat, Ear Ache Respiratory: Negative Cardiovascular: Negative Gastrointestinal: Negative Genitourinary: Negative Motor: Negative Neurovascular: Negative Musculoskeletal: Negative Neurological: Negative Psychological: Negative Is Patient Immunocompromised?: No All Other Systems Reviewed And Are Negative: Yes Physical Exam Triage Information Reviewed: Yes Appearance: Well-Appearing, No Pain Distress, Well-Nourished Vital Signs: Initial Vital Signs Temp 97.8 F 05/04/17 13:21 Pulse 77 05/04/17 13:21 Resp 16 05/04/17 13:21 BP 136/76 05/04/17 13:21 Pulse Ox 99 05/04/17 13:21 Vital Signs Reviewed: Yes Eye Exam: Normal ENT: Positive: Pharynx normal, TM bulging - RIGHT, TM dull - RIGHT, Other - RIGHT EDEMA OF EAC Dental Exam: Normal Neck exam: Normal Respiratory Exam: Normal Respiratory: Positive: Chest non-tender, Lungs clear, Normal breath sounds, No respiratory distress, No accessory muscle use Cardiovascular Exam: Normal Cardiovascular: Positive: RRR, No Murmur, Pulses Normal Abdominal Exam: Normal Musculoskeletal Exam: Normal Musculoskeletal: Positive: Strength Intact Neurological Exam: Normal Psychological Exam: Normal Skin Exam: Normal Ear Complaint Course/Dx - Differential Dx/Diagnosis Differential Diagnosis/HQI/PQRI: Otitis Externa, Otitis Media, Perforated TM, URI Provider Diagnoses: RIGHT OTITIS MEDIA/EXTERNA Discharge - Discharge Plan Condition: Stable Disposition: HOME Prescriptions: Cephalexin CAP* [Keflex CAP*] 500 mg PO QID #28 cap Neomyc/Polym/HC 1% OTIC SUSP* [Cortisporin Otic Susp 1%*] 4 drop RIGHT EAR QID # 1 btl Patient Education Materials: Otitis Externa (ED), Otitis Media (ED) Referrals: Josiah Macias MD [Primary Care Provider] -
== END 2017-05-04 14:00 | disposition home or self-care (01) ==
LOC: UCCORT 12:59
DX: H66.91 Otitis media, unspecified, right ear (principal); H60.91 Unspecified otitis externa, right ear; Z88.8 Allergy status to other drugs, medicaments and biological substances; Z88.1 Allergy status to other antibiotic agents; Z88.2 Allergy status to sulfonamides
CPT/HCPCS: 99212; G0463

== ENCOUNTER 2017-06-25 08:19 | Emergency (ER) | payer MEDICARE ==
[2017-06-25 08:28] VITALS: BP 135/79
--- NOTE | 2017-06-25 08:56 | ED ---
Throat Pain/Nasal Congestion - HPI Summary HPI Summary: 77 yr old male with the complaint of runny nose, sore throat, post nasal drip, and cough with congestion. The patient has been having these symptoms for the past week, and has yellow sputum production. He denies dizziness, sob. He states he has allergies to things, but he is able to take keflex. - History of Current Complaint Chief Complaint: UCRespiratory Time Seen by Provider: 06/25/17 08:32 - Allergies/Home Medications Allergies/Adverse Reactions: Allergies Allergy/AdvReac Type Severity Reaction Status Date / Time Atorvastatin [From Lipitor] Allergy Severe Hives Verified 06/25/17 08:28 Ondansetron [From Zofran] Allergy Severe RASH, Verified 06/25/17 08:28 SWELLING Sulfa Drugs Allergy Intermediate Rash Verified 06/25/17 08:28 Cetirizine [From Zyrtec] Allergy Hives Verified 06/25/17 08:28 Clavulanic Acid Allergy See Comment Verified 06/25/17 08:28 [From Augmentin] Doxycycline Allergy See Comment Verified 06/25/17 08:28 Erythromycin Allergy Unknown Verified 06/25/17 08:28 Reaction Details PMH/Surg Hx/FS Hx/Imm Hx Endocrine/Hematology History: Denies: Hx Anticoagulant Therapy, Hx Diabetes, Hx Thyroid Disease Cardiovascular History: Reports: Hx Angina, Hx Hypercholesterolemia, Hx Hypertension, Other Cardiovascular Problems/Disorders - cardiac cath 2006 r/o mitral valve prolapse Denies: Hx Pacemaker/ICD Respiratory History: Denies: Hx Asthma, Hx Chronic Obstructive Pulmonary Disease (COPD), Other Respiratory Problems/Disorders - DENIES GI History: Reports: Hx Diverticulosis, Hx Gastroesophageal Reflux Disease, Other GI Disorders - hospitalized for diverticulitis 2002 History: Reports: Hx Benign Prostatic Hyperplasia Denies: Hx Renal Disease Sensory History: Reports: Hx Contacts or Glasses, Hx Vision Problem Denies: Hx Hearing Aid Opthamlomology History: Reports: Hx Contacts or Glasses, Hx Vision Problem Neurological History: Denies: Hx Dementia, Hx Seizures Psychiatric History: Reports: Hx Anxiety - mild, takes xanax Denies: Hx Panic Disorder, Hx Substance Abuse - Cancer History Cancer Type, Location and Year: skin lesions biopsied 2011 - Surgical History Surgery Procedure, Year, and Place: gangleon cyst Infectious Disease History: Yes Infectious Disease History: Reports: Hx Shingles Denies: Hx Clostridium Difficile, Hx Hepatitis, Hx Human Immunodeficiency Virus (HIV), Hx of Known/Suspected MRSA, Hx Tuberculosis, Hx Known/Suspected VRE , Hx Known/Suspected VRSA, History Other Infectious Disease, Traveled Outside the [place] in Last 30 Days - Family History Known Family History: Positive: Other - allergies Negative: Diabetes - Social History Alcohol Use: None Substance Use Type: Reports: None Smoking Status (MU): Never Smoked Tobacco Review of Systems Positive: Nasal Discharge Positive: Cough All Other Systems Reviewed And Are Negative: Yes Physical Exam Triage Information Reviewed: Yes Vital Signs On Initial Exam: Initial Vitals Temp Pulse Resp BP Pulse Ox 98.7 F 91 16 135/79 97 06/25/17 08:25 06/25/17 08:25 06/25/17 08:25 06/25/17 08:25 06/25/17 08:25 Vital Signs Reviewed: Yes Appearance: Positive: Well-Appearing, No Pain Distress Head/Face: Positive: Normal Head/Face Inspection Eyes: Positive: EOMI ENT: Positive: Normal ENT inspection, Pharynx normal, Nasal congestion, TMs normal, Sinus tenderness Neck: Positive: Nontender Respiratory/Lung Sounds: Positive: Clear to Auscultation, Breath Sounds Present Cardiovascular: Positive: RRR. Negative: Murmur Abdomen Description: Positive: Nontender Musculoskeletal: Positive: Strength/ROM Intact Neurological: Positive: Sensory/Motor Intact, Alert, Oriented to Person Place, Time, CN Intact II-III Psychiatric: Positive: Normal - [place] Coma Scale Best Eye Response: 4 - Spontaneous Best Motor Response: 6 - Obeys Commands Best Verbal Response: 5 - Oriented Diagnostics - Vital Signs Vital Signs Temp Pulse Resp BP Pulse Ox 06/25/17 08:25 98.7 F 91 16 135/79 97 - Laboratory Lab Statement: Any lab studies that have been ordered have been reviewed, and results considered in the medical decision making process. EENT Course/Dx - Course Course Of Treatment: 77 yr old male with sinusitis. Rx with keflex. he cannot take augmentin, doxy or macrolides. - Diagnoses Provider Diagnoses: Sinusitis Discharge - Discharge Plan Condition: Good Disposition: HOME Patient Education Materials: Sinusitis (ED) Referrals: Josiah Macias MD [Primary Care Provider] - 2 Days
== END 2017-06-25 09:01 | disposition home or self-care (01) ==
LOC: UCCORT 08:19
DX: J32.9 Chronic sinusitis, unspecified (principal); I20.9 Angina pectoris, unspecified; E78.00 Pure hypercholesterolemia, unspecified; I10 Essential (primary) hypertension; K57.90 Diverticulosis of intestine, part unspecified, without perforation or abscess without bleeding; K21.9 Gastro-esophageal reflux disease without esophagitis; N40.0 Benign prostatic hyperplasia without lower urinary tract symptoms; F41.9 Anxiety disorder, unspecified; Z88.3 Allergy status to other anti-infective agents; Z88.2 Allergy status to sulfonamides
CPT/HCPCS: 99212; G0463

== ENCOUNTER 2018-02-03 11:54 | Emergency (ER) | payer MEDICARE ==
--- NOTE | 2018-02-03 12:19 | ED ---
GI/ HPI - HPI Summary HPI Summary: This is scribe Rhett Slaughter documenting for attending Yovani Jackson MD. Patient is a 77 y/o M w/ c/o bloody, dark red, and soft stool onsetting yesterday. He reports 3 such bowel movements, one at 0930 yesterday morning, another 2200 last night, and a third today at around 0830. Stool is also described as having a "terrible odor". Nausea and a "churning" feeling in lower abdomen is noted as well. On triage, associated pain is rated 3/10 and it is reported that eating makes patient feel bloated and lower abdomen hard and gassy. Nothing is stated to alleviate Sx. Patient denies taking antibiotics and ibuprofen. He takes baby aspirin every day for heart conditions. PMHx of GERD is reported; patient claims he takes Prilosec. Other home medications and allergies are reviewed. - History of Current Complaint Chief Complaint: EDGIBleed Time Seen by Provider: 02/03/18 12:16 Stated Complaint: BLOOD IN STOOL Hx Obtained From: Patient Onset/Duration: Started Days Ago - yesterday Severity: Moderate Current Severity: Mild - associated pain is rated 3/10 on triage Vaginal Bleeding Description: Dark Red Pain Intensity: 3 Pain Characteristics: Other: - Patient reports nausea feeling and "churning" feeling in lower abdomen Associated Signs and Symptoms: Positive: Nausea, Bright Red Blood w/Stool, Other : - "churning" feeling in lower abdomen Aggravating Factor(s): Food - eating is reported to make patient feel bloated and lower abdomen hard and gassy Alleviating Factor(s): Nothing - Additional Pertinent History Primary Care Physician: [id number] - Allergy/Home Medications Allergies/Adverse Reactions: Allergies Allergy/AdvReac Type Severity Reaction Status Date / Time atorvastatin Allergy Intermediate Hives Verified 02/03/18 13:33 cetirizine [From Zyrtec] Allergy Intermediate Hives Verified 02/03/18 13:33 clavulanic acid Allergy Intermediate See Comment Verified 02/03/18 13:33 doxycycline Allergy Intermediate See Comment Verified 02/03/18 13:33 ondansetron [From Zofran] Allergy Intermediate Rash and Verified 02/03/18 13:33 Swelling Sulfa (Sulfonamide Allergy Intermediate Rash Verified 02/03/18 13:33 Antibiotics) erythromycin base Allergy Unknown Unknown Verified 02/03/18 13:33 Reaction Details Home Medications: Home Medications Alfuzosin ER (NF) [Uroxatral (NF)] 10 mg PO QAM 02/03/18 [History Confirmed 09/18] Calcium Carb/Mag Ox/Zinc Sulf [Calcium & Magnesium + Zin 334-134-5 mg] 1 tab PO QPM 02/03/18 [History Confirmed 02/03/18] Desloratidine (NF) [Clarinex (NF)] 5 mg PO QAM 02/03/18 [History Confirmed 02/03] Doxepin (NF) [Silenor (NF)] 10 mg PO TID 02/03/18 [History Confirmed 02/03/18] Finasteride TAB* [Proscar TAB*] 5 mg PO QPM 02/03/18 [History Confirmed 02/03/18 ] Gemfibrozil TAB* [Lopid TAB*] 600 mg PO TID 02/03/18 [History Confirmed ] Omeprazole CAP* [Prilosec CAP* 20 MG] 20 mg PO QAM 02/03/18 [History Confirmed 02/03/18] Polyethylene Glycol 3350* [Miralax*] 17 gm PO DAILY PRN 02/03/18 [History Confirmed 02/03/18] PMH/Surg Hx/FS Hx/Imm Hx Endocrine/Hematology History: Denies: Hx Anticoagulant Therapy, Hx Diabetes, Hx Thyroid Disease Cardiovascular History: Reports: Hx Angina, Hx Hypercholesterolemia, Hx Hypertension, Other Cardiovascular Problems/Disorders - cardiac cath 2006 r/o mitral valve prolapse Denies: Hx Pacemaker/ICD Respiratory History: Denies: Hx Asthma, Hx Chronic Obstructive Pulmonary Disease (COPD), Other Respiratory Problems/Disorders - DENIES GI History: Reports: Hx Diverticulosis, Hx Gastroesophageal Reflux Disease, Other GI Disorders - hospitalized for diverticulitis 2002 History: Reports: Hx Benign Prostatic Hyperplasia Denies: Hx Renal Disease Sensory History: Reports: Hx Contacts or Glasses, Hx Vision Problem Opthamlomology History: Reports: Hx Contacts or Glasses, Hx Vision Problem Neurological History: Denies: Hx Dementia, Hx Seizures Psychiatric History: Reports: Hx Anxiety - mild, takes xanax Denies: Hx Panic Disorder, Hx Substance Abuse - Cancer History Cancer Type, Location and Year: skin lesions biopsied 2011 - Surgical History Surgery Procedure, Year, and Place: gangleon cyst Infectious Disease History: No Infectious Disease History: Reports: Hx Shingles Denies: Hx Clostridium Difficile, Hx Hepatitis, Hx Human Immunodeficiency Virus (HIV), Hx of Known/Suspected MRSA, Hx Tuberculosis, Hx Known/Suspected VRE , Hx Known/Suspected VRSA, History Other Infectious Disease, Traveled Outside the [place] in Last 30 Days - Family History Known Family History: Positive: Other - allergies Negative: Diabetes - Social History Alcohol Use: None Substance Use Type: Reports: None Smoking Status (MU): Never Smoked Tobacco Review of Systems Positive: Nausea, Other - "churning" feeling in lower abdomen with associated pain Positive: other - soft, dark red bloody stool with a "terrible odor" All Other Systems Reviewed And Are Negative: Yes Physical Exam - Summary Physical Exam Summary: Appearance: The patient is well-nourished in no acute distress and in no acute pain. Skin: The skin is warm and dry and skin color reflects adequate perfusion. HEENT: The head is normocephalic and atraumatic. The pupils are equal and reactive. The conjunctivae are clear and without drainage. Nares are patent and without drainage. Mouth reveals moist mucous membranes and the throat is without erythema and exudate. The external ears are intact. The ear canals are patent and without drainage. The tympanic membranes are intact. Neck: The neck is supple with full range of motion and non-tender. There are no carotid bruits. There is no neck vein distension. Respiratory: Chest is non-tender. Lungs are clear to auscultation and breath sounds are symmetrical and equal. Cardiovascular: Heart is regular rate and rhythm. There is no murmur or rub auscultated. There is no peripheral edema and pulses are symmetrical and equal. Abdomen: The abdomen is soft and non-tender. There are normal bowel sounds heard in all four quadrants and there is no organomegaly palpated. Musculoskeletal: There is no back tenderness noted. Extremities are non-tender with full range of motion. There is good capillary refill. There is no peripheral edema or calf tenderness elicited. Neurological: Patient is alert and oriented to person, place and time. The patient has symmetrical motor strength in all four extremities. Cranial nerves are grossly intact. Deep tendon reflexes are symmetrical and equal in all four extremities. Psychiatric: The patient has an appropriate affect and does not exhibit any anxiety or depression. Triage Information Reviewed: Yes Vital Signs On Initial Exam: Initial Vitals Temp Pulse Resp BP Pulse Ox 97.3 F 98 20 165/96 93 02/03/18 11:59 02/03/18 11:59 02/03/18 11:59 02/03/18 11:59 02/03/18 11:59 Vital Signs Reviewed: Yes Diagnostics - Vital Signs Vital Signs Temp Pulse Resp BP Pulse Ox 02/03/18 11:59 97.3 F 98 20 165/96 93 - Laboratory Result Diagrams: 02/03/18 12:46 02/03/18 12:46 Lab Statement: Any lab studies that have been ordered have been reviewed, and results considered in the medical decision making process. Re-Evaluation - Re-Evaluation First Eval Re-Evaluation Time: 15:44 Comment: Results of tests and labs as well as consult with Dr. Cobb were discussed. Follow-up plan of discharging patient to home and seeing Dr. Cobb at his office next week was discussed. Patient is agreeable with plan. GIGU Course/Dx - Course Course Of Treatment: Mr. Allison presented with 3 episodes of what sounds like melena stool with some bright red blood over the past 36 hours. His vitals were stable and he was noted to have only of very slightly decreased H&H and very slightly increased BUN/creatinine. He was observed for a period of time here and had no further bowel movements in his vitals remained stable. I spoke with Dr. Cobb about close follow-up as he will probably need to be scoped. He was instructed to return if his bleeding increased or he developed a fever lightheadedness etc. - Diagnoses Provider Diagnoses: Upper GI bleed - Physician Notifications Discussed Care Of Patient With: Mendoza Cobb Time Discussed With Above Provider: 15:34 Instructed by Provider To: Other - Dr. Cobb was consulted on patient's case at 15:34. Dr. Cobb recommends discharging patient to home and follow up at his office next week. Dr. Jackson is agreeable with this plan. Discharge - Sign-Out/Discharge Documenting (check all that apply): Patient Departure - discharge - Discharge Plan Condition: Stable Disposition: HOME Patient Education Materials: Gastrointestinal Bleeding (ED) Referrals: Mendoza Cobb MD [Medical Doctor] - 1 Week Additional Instructions: Follow up with Dr. Lemberg's office next week. Take usual dosage of omeprazole twice a day. Return to ED for any new or worsening symptoms. - Billing Disposition and Condition Condition: STABLE Disposition: Home
[2018-02-03] MEDS ORDERED: Pantoprazole IV* 40 MG IV ONE (12:31)
[2018-02-03 12:57] LABS: ABS Basophils 0 10^3/ul (0-0.2); ABS Eosinophils 0 10^3/ul (0-0.6); ABS Lymphocytes 1.1 10^3/ul (1.0-4.8); ABS Monocytes 0.3 10^3/ul (0-0.8); ABS Neutrophils 5.6 10^3/ul (1.5-7.7); ABS Nucleated RBC 0 10^3/ul; Eosinophil % 0.4 % (0-6); Hematocrit 39 % (42-52); Hemoglobin 13.6 g/dl (14.0-18.0); Lymphocyte % 15.5 % (25-47); Mean Corpuscular HGB Conc 35 g/dl (31-36); Mean Corpuscular Hemoglobin 32 pg (27-31); Mean Corpuscular Volume 93 fL (80-94); Mean Platelet Volume 7.3 um3 (7.4-10.4); Nucleated Red Blood Cells % 0; Platelet Count 197 10^3/ul (150-450); Red Blood Count 4.23 10^6/ul (4.00-5.40); Red Cell Distribution Width 13 % (10.5-15)
[2018-02-03] MEDS: NS 0.9% 1000 ML* 1,000 ML IV ONE ×2 (13:02→13:28)
[2018-02-03 13:12] LABS: INR 0.9 (0.77-1.02)
[2018-02-03 13:15] LABS: EGFR Non-African American 82.3 (>60)
[2018-02-03 17:24] VITALS: BP 165/112
== END 2018-02-03 16:50 | disposition home or self-care (01) ==
LOC: ED 11:54
DX: K92.2 Gastrointestinal hemorrhage, unspecified (principal); K21.9 Gastro-esophageal reflux disease without esophagitis; I51.9 Heart disease, unspecified; F41.9 Anxiety disorder, unspecified; Z79.82 Long term (current) use of aspirin; Z79.899 Other long term (current) drug therapy; Z88.8 Allergy status to other drugs, medicaments and biological substances; Z88.3 Allergy status to other anti-infective agents; Z88.2 Allergy status to sulfonamides
CPT/HCPCS: 36415; 80053; 85025; 85610; 85730; 86850; 86900; 86901; 96361; 96374; 99282

== ENCOUNTER 2018-07-01 12:13 | Emergency (ER) | payer MEDICARE ==
[2018-07-01 14:50] VITALS: BP 134/69
--- NOTE | 2018-07-01 15:03 | UC ---
Respiratory Complaint HPI - HPI Summary HPI Summary: The patient is a 78-year-old male with a two-week history of productive cough. The past 4 days he has had some nasal congestion and postnasal drip as well as some moderate sore throat. He denies any fever. He denies any severe headache or myalgias. He denies any chest pain or shortness of breath. - History of Current Complaint Chief Complaint: UCRespiratory Stated Complaint: SORE THROAT Time Seen by Provider: 07/01/18 14:53 Hx Obtained From: Patient Onset/Duration: Gradual Onset, Lasting Days Timing: Constant Severity Currently: Moderate Pain Intensity: 7 Pain Scale Used: 0-10 Numeric Character: Cough: Productive Aggravating Factors: Nothing Alleviating Factors: Nothing Associated Signs And Symptoms: Positive: Nasal Congestion, Hoarseness, Sinus Discomfort - Allergies/Home Medications Allergies/Adverse Reactions: Allergies Allergy/AdvReac Type Severity Reaction Status Date / Time atorvastatin Allergy Intermediate Hives Verified 07/01/18 14:53 cetirizine [From Zyrtec] Allergy Intermediate Hives Verified 07/01/18 14:53 clavulanic acid Allergy Intermediate See Comment Verified 07/01/18 14:53 ondansetron [From Zofran] Allergy Intermediate Rash and Verified 07/01/18 14:53 Swelling Sulfa (Sulfonamide Allergy Intermediate Rash Verified 07/01/18 14:53 Antibiotics) gabapentin Allergy Muscle Ache Verified 07/01/18 14:53 PMH/Surg Hx/FS Hx/Imm Hx Endocrine History: Dyslipidemia Cardiovascular History: Hypertension Respiratory History: Bronchitis Other History Of: Negative For: Anticoagulant Therapy - Surgical History Surgical History: Yes Surgery Procedure, Year, and Place: gangleon cyst - Family History Known Family History: Positive: Hypertension, Other - allergies Negative: Diabetes - Social History Alcohol Use: Rare Substance Use Type: None Smoking Status (MU): Never Smoked Tobacco - Immunization History Most Recent Influenza Vaccination: yes 04/2017 Most Recent Pneumonia Vaccination: 2015 Review of Systems All Other Systems Reviewed And Are Negative: Yes Constitutional: Positive: Negative Skin: Positive: Negative Eyes: Positive: Negative ENT: Positive: Sore Throat, Nasal Discharge, Sinus Congestion, Sinus Pain/ Tenderness Respiratory: Positive: Cough Cardiovascular: Positive: Negative Gastrointestinal: Positive: Negative Genitourinary: Positive: Negative Motor: Positive: Negative Neurovascular: Positive: Negative Musculoskeletal: Positive: Negative Neurological: Positive: Negative Psychological: Positive: Negative Physical Exam Triage Information Reviewed: Yes Appearance: Well-Appearing, No Pain Distress, Well-Nourished Vital Signs: Initial Vital Signs Temp 97.6 F 07/01/18 14:42 Pulse 89 07/01/18 14:42 Resp 18 07/01/18 14:42 BP 134/69 07/01/18 14:42 Pulse Ox 97 07/01/18 14:42 Vital Signs Reviewed: Yes Eyes: Positive: Conjunctiva Clear ENT: Positive: Pharyngeal erythema, Nasal congestion, Nasal drainage, TMs normal , Hoarse voice, Uvula midline. Negative: Hearing grossly normal, Tonsillar swelling, Tonsillar exudate, Trismus, Muffled voice, Dental tenderness, Sinus tenderness Neck: Positive: Supple, Nontender Respiratory: Positive: Lungs clear, Normal breath sounds, No respiratory distress, No accessory muscle use Cardiovascular: Positive: RRR, No Murmur Musculoskeletal: Positive: ROM Intact, No Edema Neurological: Positive: Alert Psychological Exam: Normal Skin Exam: Normal UC Diagnostic Evaluation - Laboratory O2 Sat by Pulse Oximetry: 97 - normal/not hypoxic Respiratory Course/Dx - Differential Dx/Diagnosis Provider Diagnosis: Pharyngitis, Bronchitis Discharge - Sign-Out/Discharge Documenting (check all that apply): Patient Departure All imaging exams completed and their final reports reviewed: No Studies - Discharge Plan Condition: Stable Disposition: HOME Prescriptions: DOXYcycline CAP(*) [DOXYcycline 100MG CAP(*)] 100 mg PO BID #20 cap Patient Education Materials: Pharyngitis (ED), Acute Bronchitis (ED) Referrals: Enio Hsu DO [Primary Care Provider] - 5 Days (if not better) Additional Instructions: rest fluids robitussin or mucinex - Billing Disposition and Condition Condition: STABLE Disposition: Home
== END 2018-07-01 15:13 | disposition home or self-care (01) ==
LOC: UCCORT 12:13
DX: J02.9 Acute pharyngitis, unspecified (principal); J40 Bronchitis, not specified as acute or chronic; Z88.8 Allergy status to other drugs, medicaments and biological substances; Z88.2 Allergy status to sulfonamides; I10 Essential (primary) hypertension
CPT/HCPCS: 99212; G0463

== ENCOUNTER 2022-01-04 14:26 | Inpatient (IN) ==
[2022-01-04 15:14] LABS: ABS Eosinophils 0.1 10^3/ul (0-0.6); ABS Monocytes 0.4 10^3/ul (0-0.8); ABS Neutrophils 6.5 10^3/ul (1.5-7.7); Eosinophil % 1.1 %; Hematocrit 42 % (42-52); Hemoglobin 14.5 g/dL (14.0-18.0); Lymphocyte % 12.1 %; Mean Corpuscular HGB Conc 34 g/dL (31-36); Mean Corpuscular Hemoglobin 32 pg (27-31); Mean Corpuscular Volume 93 fL (80-94); Mean Platelet Volume 7.5 fL (7.4-10.4); Platelet Count 209 10^3/uL (150-450); Red Blood Count 4.53 10^6 /uL (4.18-5.48); Red Cell Distribution Width 14 % (10-15)
[2022-01-04 15:26] LABS: INR 1.04 (0.86-1.15)
[2022-01-04 15:57] LABS: Albumin 4.5 g/dL (3.2-5.2); Albumin/Globulin Ratio 1.9 (1-3); Calcium 9.5 mg/dL (8.6-10.3); Globulin 2.4 g/dL (2-4); Potassium 4.2 mmol/L (3.5-5.0); Total Bilirubin 0.6 mg/dL (0.2-1.0); Total Protein 6.9 g/dL (6.4-8.9); eGFR CKD-EPI 88.4 (>60)
[2022-01-04] MEDS ORDERED: Iohexol 350 (CONTRAST) 500 ML MDV IV ONE (16:00)
[2022-01-04] MEDS ORDERED: Heparin DRIP 25,000 UNITS BAG 25,000 UNITS/500 ML BAG IV SCH (16:45)
[2022-01-04 16:52] LABS: High Sensitivity Troponin 1 Hr 9 pg/mL (<20)
[2022-01-04] MEDS ORDERED: Heparin 5000 UNITS/ML 1 mL VIAL IV SCH (17:00)
[2022-01-04 17:51] LABS: eGFR CKD-EPI 88.1 (>60)
[2022-01-04] MEDS: Pravastatin 20 mg TAB (NF) PO SCH (22:49)
[2022-01-04] MEDS ORDERED: Levalbuterol HFA INHALER MDI INH PRN (23:41)
[2022-01-04] MEDS: Gemfibrozil 600 mg PO SCH (23:48)
[2022-01-05] MEDS ORDERED: Levalbuterol HFA INHALER MDI INH SCH (01:00)
[2022-01-05 05:58] LABS: ABS Eosinophils 0.2 10^3/ul (0-0.6); ABS Lymphocytes 1.8 10^3/ul (1.0-4.8); ABS Monocytes 0.4 10^3/ul (0-0.8); ABS Neutrophils 3.1 10^3/ul (1.5-7.7); Eosinophil % 3.8 %; Hematocrit 40 % (42-52); Hemoglobin 13.3 g/dL (14.0-18.0); Lymphocyte % 33.4 %; Mean Corpuscular HGB Conc 34 g/dL (31-36); Mean Corpuscular Hemoglobin 31 pg (27-31); Mean Corpuscular Volume 94 fL (80-94); Mean Platelet Volume 7.7 fL (7.4-10.4); Platelet Count 191 10^3/uL (150-450); Red Blood Count 4.25 10^6 /uL (4.18-5.48); Red Cell Distribution Width 13 % (10-15); White Blood Count 5.5 10^3/uL (3.5-10.8)
[2022-01-05 06:44] LABS: Calcium 8.8 mg/dL (8.6-10.3); Potassium 3.7 mmol/L (3.5-5.0)
[2022-01-05 06:53] LABS: eGFR CKD-EPI 88.1 (>60)
[2022-01-05] MEDS: CMCS: Alfuzosin ER 10 mg TAB.ER (NF) 10 MG TAB.ER PO SCH (08:26)
[2022-01-05] MEDS: Gemfibrozil 600 mg PO SCH ×2 (08:27→21:42)
[2022-01-05] MEDS: CMCS: LoraTADine 10 mg TAB (NF) PO SCH (08:28)
[2022-01-05] MEDS: Polyethylene Glycol 3350 17 GM PACKET PO SCH (08:29)
[2022-01-05] MEDS: CMCS: Doxepin 10 mg CAP (NF) PO SCH ×3 (08:30→21:48)
[2022-01-05] MEDS: Mometasone/Formoter 100/5 MDI INH SCH ×2 (09:14→18:59)
[2022-01-05 11:35] LABS: Urine Appearance Clear; Urine Bilirubin Negative (Negative); Urine Blood Negative (Negative); Urine Color Yellow; Urine Glucose Negative (Negative); Urine Ketones Negative (Negative); Urine Nitrite Negative (Negative); Urine Protein Negative (Negative); Urine Specific Gravity 1.015 (1.002-1.030); Urine Urobilinogen Negative (Negative)
[2022-01-05] MEDS ORDERED: Prochlorperazine 5 mg/ml 2 ml VIAL (10 mg) IV PRN (17:28)
[2022-01-05] MEDS: Pravastatin 20 mg TAB (NF) PO SCH (21:41)
[2022-01-06 05:22] LABS: ABS Eosinophils 0.2 10^3/ul (0-0.6); ABS Lymphocytes 1.6 10^3/ul (1.0-4.8); ABS Monocytes 0.5 10^3/ul (0-0.8); Eosinophil % 2.9 %; Hematocrit 40 % (42-52); Hemoglobin 13.6 g/dL (14.0-18.0); Lymphocyte % 25.7 %; Mean Corpuscular HGB Conc 34 g/dL (31-36); Mean Corpuscular Hemoglobin 32 pg (27-31); Mean Corpuscular Volume 94 fL (80-94); Mean Platelet Volume 7.8 fL (7.4-10.4); Platelet Count 200 10^3/uL (150-450); Red Blood Count 4.21 10^6 /uL (4.18-5.48); Red Cell Distribution Width 13 % (10-15); White Blood Count 6.3 10^3/uL (3.5-10.8)
[2022-01-06 05:58] LABS: eGFR CKD-EPI 80.4 (>60)
[2022-01-06] MEDS: Mometasone/Formoter 100/5 MDI INH SCH (08:21)
[2022-01-06] MEDS: Gemfibrozil 600 mg PO SCH (09:41)
[2022-01-06] MEDS: CMCS: LoraTADine 10 mg TAB (NF) PO SCH (09:41)
[2022-01-06] MEDS: CMCS: Alfuzosin ER 10 mg TAB.ER (NF) 10 MG TAB.ER PO SCH (09:41)
[2022-01-06] MEDS: Polyethylene Glycol 3350 17 GM PACKET PO SCH (09:44)
[2022-01-06] MEDS: CMCS: Doxepin 10 mg CAP (NF) PO SCH (09:45)
[2022-01-06 11:27] VITALS: BP 135/70
[2022-01-06] MEDS ORDERED: CMC:Doxepin 10 mg CAP (NF) PO SCH (21:00)
== END 2022-01-06 16:25 | disposition home or self-care (01) | DRG 176 ==
LOC: ED 14:26 → EDHOLD 18:44 → MEDTELE 21:23
PROVIDERS: ADMIT Internal Medicine; ATTEND Internal Medicine